=== PATIENT | male | born 1950 | race Caucasian/White ===

== ENCOUNTER 2016-12-19 08:51 | Inpatient (IN) | payer MEDICARE, OTHER ==
[~2016-12-19] VITALS: Ht 190.5 cm; Wt 108.9 kg
--- NOTE | 2016-12-19 09:08 | NUR ---
pt BRIB airport police and social work program coordinator on 354 psych hold for medical clearance for admit. Breatihng even/unlabored, no c/o pain at this time. gait steady. VS stable
[2016-12-19 09:16] LABS: BASOPHILS % (AUTO) 0.3 % (0.0-2.0); EOSINOPHILS # (AUTO) 0.4 /CMM (0.0-0.7); EOSINOPHILS % (AUTO) 4.5 % (0.0-6.0); HEMATOCRIT 42 % (39-51); LYMPHOCYTES # (AUTO) 1.3 /CMM (0.8-4.8); LYMPHOCYTES % (AUTO) 16.8 % (20.0-44.0); MEAN CORPUSCULAR HEMOGLOBIN 29 PG (26.0-33.0); MEAN CORPUSCULAR HGB CONC 34 g/dl (31.0-36.0); MEAN CORPUSCULAR VOLUME 86 fL (80-96); MONOCYTES # (AUTO) 0.8 /CMM (0.1-1.30); MONOCYTES % (AUTO) 10.6 % (2.0-12.0); NEUTROPHILS # (AUTO) 5.4 /CMM (1.8-8.9); NEUTROPHILS % (AUTO) 67.8 % (43.0-81.0); PLATELET COUNT (AUTO) 286 /CMM (150-450); RDW COEFFICIENT OF VARIATION 13.1 (11.5-15.0); RED BLOOD CELL COUNT(AUTO) 4.88 MIL/uL (4.5-6.0)
[2016-12-19 09:23] LABS: CARBON DIOXIDE 27 mmol/L (21-32); CHLORIDE 105 mmol/L (98-107); CREATININE 1.1 mg/dL (0.6-1.3); GLUCOSE 98 mg/dL (74-106); POTASSIUM 4.4 mmol/L (3.5-5.1); SODIUM SERUM 139 mmol/L (136-145); UREA NITROGEN, BLOOD 16 mg/dL (7-18)
[2016-12-19 09:25] LABS: ALCOHOL, BLOOD < 3 mg/dL (0-0)
--- NOTE | 2016-12-19 09:57 | NUR ---
Report to [facility], verbalized understanding pt going to [facility]
--- NOTE | 2016-12-19 10:44 | NUR ---
transported to [facility], stable condition, NAD noted
[2016-12-19 10:57] VITALS: BP 100/65
--- NOTE | 2016-12-19 10:57 | NUR ---
ADMISSION NOTES/ PATIENT ADMIT FROM ER 65 Y/OLD ON DX OF GD HOMELESS MALE ON 5150 HOLD. ACCORDING ON HOLD PATIENT FOUND IN THE [place] AIRPORT, PATIENT IDENTIFIED BY AIRPORT COUNTERINTELLIGENCE/HUMINT SPECIALIST TO BE TALKING SELF,VERBALLY AGGRESSIVE, ODOROUS, AND AGITATED, DISORGANIZED, AND DELUSIONAL SPEECH, AND NO IDENTIFIED PLAN FOR BASIC NEEDS, NO IDENTIFY PLAN FOR SELF CARE. V/S TAKEN BP-100/65, P-76, R-20, O2-97 ROOM AIR, T-98.0, NO RESPIRATORY DISTRESS. ON FACE TO FACE ASSESSMENT PATIENT A/O X2/3, IRRITABLE, LOUD, HARD TO FOLLOW DIRECTION, UNKEMPT, DISORGANIZED THOUGHTS. WITH ASSIST OF FINANCIAL REPRESENTATIVE PATIENT TAKE A SHOWER. SKIN ASSESSMENT DONE, PICTURE TAKEN. PATIENT AMBULATORY, CONTINENT. FALL AND SAFETY PRECAUTION ATTENDED , AND MAINTAINED ALL THE TIME. PATIENT REFUSED SIGN PAPERWORK. PATIENTS RIGHT HAND BOOKS GIVEN, AND EXPLAINED TO. PATIENT BELONGING AND CONTRABAND CHECKED. DR CHANCE, AND DR BECKFORD AWARE OF NEW PATIENT, AND NEW MEDICATION, CONTINUED MONITORING.
[2016-12-19] MEDS ORDERED: ZOLPIDEM TARTRATE 5 MG TABLET PO PRN (12:00)
[2016-12-19] MEDS ORDERED: ACETAMINOPHEN 325 MG TABLET PO PRN (12:00)
[2016-12-19] MEDS ORDERED: MAG HYDROX/AL HYDROX/SIMETH 30 ML UDC PO PRN (12:00)
[2016-12-19] MEDS ORDERED: MAGNESIUM HYDROXIDE 30 ML UDC PO PRN (12:00)
[2016-12-19] MEDS ORDERED: ALBUTEROL FS 2.5 MG/3 ML VIAL.NEB NEB PRN (13:30)
[2016-12-19 16:00] VITALS: BP 143/68
[2016-12-19] MEDS: OLANZAPINE 5 MG/TAB.RAPDIS PO SCH (17:41)
--- NOTE | 2016-12-19 20:00 | NUR ---
GPS RN NOTES PT REFUSED VS. EXPLAINED TO PT IMPORTANCE OF VS IN HIS POC BUT PT STILL REFUSED.
[2016-12-19] MEDS: DIVALPROEX SODIUM 250 MG TABLET.DR PO SCH (21:20)
[2016-12-20 06:54] LABS: ALBUMIN 3.3 g/dL (3.4-5.0); BILIRUBIN,TOTAL 0.4 mg/dL (0.2-1.0); CREATININE 1.1 mg/dL (0.6-1.3); POTASSIUM 4.5 mmol/L (3.5-5.1)
[2016-12-20] MEDS: OLANZAPINE 5 MG/TAB.RAPDIS PO SCH ×2 (08:06→16:09)
[2016-12-20] MEDS: DIVALPROEX SODIUM 250 MG TABLET.DR PO SCH ×2 (08:06→20:27)
[2016-12-20 08:44] VITALS: BP 125/81
--- NOTE | 2016-12-20 10:57 | NUR ---
Initial Discharge Plan: Per patient, he resides at [address] [place], [place] [id number]. However, per hold, pt. is homeless. filter worker spoke to patient's friend Alize Mejia ([phone]) however, she stated that she does not remember meeting a Sreedhar. filter worker will help form a safe and proper discharge.
[2016-12-20] MEDS: LORAZEPAM 0.5 MG TABLET PO PRN (12:34)
--- NOTE | 2016-12-20 12:34 | NUR ---
ADMINISTERED ATIVAN 1 MG PO PRN FOR ANXIETY, IRRITABLE, AGGRESSIVE BEHAVIOR, ALSO ADMINISTERED TYLENOL 650 MG PO PRN FOR RIGHT LEG PAIN 12/10, PER PATIENT REQUEST, CONTINUED MONITORING.
[2016-12-20 16:18] VITALS: BP 93/62
[2016-12-20] MEDS ORDERED: IBUPROFEN 600 MG TABLET PO PRN (18:30)
--- NOTE | 2016-12-20 18:30 | NUR ---
administered motrin 600 mg po prn for right hill pain 01/31, per patient request. continued monitoring.
[2016-12-20 20:00] VITALS: BP 124/60
--- NOTE | 2016-12-20 20:00 | NUR ---
RN NOTES RECEIVED PT. SLEEPING BUT AROUSABLE, NOT IN DISTRESS, QUIET, WILL CONTINUE TO MONITOR
[2016-12-21 08:00] VITALS: BP 112/59
[2016-12-21] MEDS: DIVALPROEX SODIUM 250 MG TABLET.DR PO SCH ×2 (09:09→20:33)
[2016-12-21] MEDS: OLANZAPINE 5 MG/TAB.RAPDIS PO SCH ×2 (09:09→17:05)
--- NOTE | 2016-12-21 12:13 | NUR ---
WOUND CARE CONSULT: PT NOT SEEN FOR SKIN ASSESSMENT DUE TO PT EATING AT THIS TIME. PT AMBULATORY PER NURSING STAFF. WILL SEE PRN.
[2016-12-21 16:00] VITALS: BP 114/56
[2016-12-21 20:00] VITALS: BP 116/66
[2016-12-21] MEDS: LORAZEPAM 0.5 MG TABLET PO PRN (21:01)
[2016-12-22 08:00] VITALS: BP 114/69
[2016-12-22] MEDS: DIVALPROEX SODIUM 250 MG TABLET.DR PO SCH ×2 (08:24→21:14)
[2016-12-22] MEDS: OLANZAPINE 5 MG/TAB.RAPDIS PO SCH ×2 (08:24→16:34)
[2016-12-22 15:59] VITALS: BP 120/70
--- NOTE | 2016-12-22 19:30 | NUR ---
GPS RN NOTE, RECEIVED PATIENT AWAKE AND IN BED, NO S/S OR COMPLAINTS OF PAIN AT THIS TIME. PATIENT IS DISPLAYING NO S/S OF APPARENT DISTRESS AT THIS TIME. PATIENT BREATHING IS UNLABORED WITH EQUAL RISE AND FALL OF THE CHEST. PATIENT IS ALERT AND ORIENTED X 3 ON ROOM AIR WITH A SPO2 95%. PATIENT COMPLAINT WITH MEDICATION, ANXIOUS, COOPERATIVE, CONFUSED AT TIMES, ISOLATIVE, AND NEEDS REORIENTATION. PATIENT DENIES SUICIDE AND HOMICIDAL IDEATIONS AT THIS TIME. PATIENT ASSISTED WITH TURNING AND REPOSITIONING Q2HR AND PRN FOR COMFORT AND CIRCULATION. PATIENT HAS NO NEEDS AT THIS TIME. PATIENT EDUCATED ON THE USE OF THE CALL BECKER. PATIENT BED SIDE RAILS UP X2 FOR SAFETY, BED IS LOCKED AND LOW WILL CONTINUE TO MONITOR AND MAINTAIN SAFETY.
[2016-12-22 20:00] VITALS: BP 102/61
[2016-12-23 08:20] VITALS: BP 135/88
[2016-12-23] MEDS: DIVALPROEX SODIUM 250 MG TABLET.DR PO SCH ×2 (08:37→21:12)
[2016-12-23] MEDS: OLANZAPINE 5 MG/TAB.RAPDIS PO SCH ×2 (08:38→17:03)
[2016-12-23 15:57] VITALS: BP 128/99
[2016-12-23 19:36] VITALS: BP 106/73
[2016-12-24] MEDS: OLANZAPINE 5 MG/TAB.RAPDIS PO SCH ×2 (07:50→17:13)
[2016-12-24] MEDS: DIVALPROEX SODIUM 250 MG TABLET.DR PO SCH ×3 (07:51→17:13)
[2016-12-24 08:00] VITALS: BP 135/75
[2016-12-24 16:00] VITALS: BP 128/80
--- NOTE | 2016-12-24 16:11 | NUR ---
post tensioning ironworker helper faxed initial review packet to [facility] (phone: [phone]/ fax: [phone]) [place] [address]. post tensioning ironworker helper spoke to Colt from the facility who stated that patient has been accepted. post tensioning ironworker helper will follow-up.
[2016-12-24 19:42] VITALS: BP 123/65
[2016-12-25] MEDS: DIVALPROEX SODIUM 250 MG TABLET.DR PO SCH ×3 (08:25→17:40)
[2016-12-25] MEDS: OLANZAPINE 5 MG/TAB.RAPDIS PO SCH ×2 (08:26→17:41)
[2016-12-25 10:02] VITALS: BP 129/68
[2016-12-25 16:00] VITALS: BP 117/69
[2016-12-25 20:57] VITALS: BP 131/84
[2016-12-26 08:00] VITALS: BP 105/68
[2016-12-26] MEDS: DIVALPROEX SODIUM 250 MG TABLET.DR PO SCH ×3 (08:39→17:13)
[2016-12-26] MEDS: OLANZAPINE 5 MG/TAB.RAPDIS PO SCH ×2 (08:39→17:13)
[2016-12-26 16:00] VITALS: BP 148/95
[2016-12-26 20:11] VITALS: BP 115/67
[2016-12-27] MEDS: DIVALPROEX SODIUM 250 MG TABLET.DR PO SCH ×2 (08:15→13:49)
[2016-12-27] MEDS: OLANZAPINE 5 MG/TAB.RAPDIS PO SCH (08:16)
[2016-12-27 08:58] VITALS: BP 143/92
--- NOTE | 2016-12-27 10:46 | NUR ---
DR. CHANCE GAVE AN ORDER TO D/C HOLD AND D/C TO [facility]. PT. WITHOUT DISTRESS, DENIES SUICIDAL AND HOMICIDAL. TO FOLLOW UP WITH PSYCH AND MEDICAL DOCTORS.
--- NOTE | 2016-12-27 15:02 | NUR ---
Discharge note: Patient will be discharged to [facility] (phone: [phone]/ fax: [phone]) [facility] [address] [address] [employer]. Patient was agreeable with the discharge plan. Patient's mood and affect are appropriate. Patient denied suicidal and homicidal ideations. Facilitated info to IDT team who are in agreement with discharge arrangement. The multidisciplinary exitcare form was done, printed, signed, and given to the patient.
--- NOTE | 2016-12-27 16:12 | NUR ---
GPS/RN PATIENT CLEARED FOR DISCHARGE HOME BY DR CHANCE AND COURT WORKER SRIDEVI. ALL D/C FORMS SIGNED, BELONGINGS RETURNED AND SIGNED FOR. MEDICATIONS RECONCILED BY BOTH DR'S, ALL MEDICATIONS EXPLAINED TO PATIENT, VERBALIZED UNDERSTANDING. PATIENT DENIES SI/HI/AH AT TIME OF DISCHARGE, PSYCHIATRIC TREATMENT PLANS MET,REPORT CALLED TO AGUILA [facility] AT FACILITY, LEFT UNIT VIA GURNEY, CALM, COOPERATIVE, NO AGITATION,STABLE CONDITION, NO DISTRESS WITH EMT AT SIDE.
== END 2016-12-27 16:05 | DRG 885 ==
LOC: EDUNIT# 08:51 → ER 08:52 → GPS 09:55
PROVIDERS: ADMIT Internal Medicine; ATTEND Psychiatry & Neurology Psychiatry
DX: F31.2 Bipolar disorder, current episode manic severe with psychotic features (principal); F23 Brief psychotic disorder; M19.90 Unspecified osteoarthritis, unspecified site; J40 Bronchitis, not specified as acute or chronic; F17.210 Nicotine dependence, cigarettes, uncomplicated; K21.9 Gastro-esophageal reflux disease without esophagitis; Z91.14 Patient's other noncompliance with medication regimen
CPT/HCPCS: 36415; 73650-TC; 80048-TC; 80053-TC; 80164-TC; 85025-TC; 87081-TC; A4606; G0480; Z7610

== ENCOUNTER 2020-05-31 18:46 | Inpatient (IN) | payer MEDICARE, OTHER ==
[~2020-05-31] VITALS: Ht 193 cm; Wt 101.2 kg
[2020-05-31] MEDS ORDERED: ZOLPIDEM TARTRATE 5 MG TABLET PO PRN (23:00)
[2020-05-31] MEDS ORDERED: MAGNESIUM HYDROXIDE 30 ML UDC PO PRN (23:00)
[2020-05-31] MEDS ORDERED: MAG HYDROX/AL HYDROX/SIMETH 30 ML UDC PO PRN (23:00)
[2020-05-31] MEDS ORDERED: LORAZEPAM 1 MG TABLET PO PRN (23:00)
[2020-05-31] MEDS ORDERED: ACETAMINOPHEN 325 MG TABLET PO PRN (23:00)
[2020-05-31] MEDS ORDERED: BLOOD SUGAR DIAGNOSTIC 1 EACH STRIP IN ONE (23:00)
--- NOTE | 2020-06-01 00:10 | NUR ---
GPS RN NOTE: ADMITTING BLOOD GLUCOSE WAS 221. INFORMED ANGELLA HOLLOWAY AND ORDERED SLIDING SCALE AND UA STAT.
--- NOTE | 2020-06-01 00:10 | NUR ---
GPS RN NOTE: [employer] FORCES COMMUNICATIONS SERGEANT ANGELLA HOLLOWAY AWARE OF PRE HTN AND PRE DIABETIC PER REPORT. STATES THAT SHE WILL REVIEW
[2020-06-01] MEDS ORDERED: INSULIN REGULAR, HUMAN 100 UNIT/ML 3 ML VIAL SQ PRN (00:30)
[2020-06-01] MEDS ORDERED: DEXTROSE 50%-WATER 50 ML DISP.SYRIN IV PRN (00:30)
--- NOTE | 2020-06-01 00:50 | NUR ---
GPS RN NOTE: PT. REFUSED INSULIN SLIDING SCALE COVERAGE. WILL CONTINUE TO MONITOR
[2020-06-01 01:00] VITALS: BP 108/48
[2020-06-01] MEDS ORDERED: OLAN2.5T3 PO (01:18)
--- NOTE | 2020-06-01 01:22 | NUR ---
GPS REBAR FABRICATOR NOTE: PT ARRIVED ON THE UNIT 05/31/20 @ 2230, PT CAME FROM [facility], PT IS A 69 Y/O MALE PLACED ON A 5150 DUE TO DTS, PER HOLD PT IS REPORTING SUICIDAL IDEATIONS AND PLANS TO OVERDOSE AND DRINK ALCOHOL. PT HAS HX DEPRESSION. UPON ASSESSMENT PT IS A/O X 3, PT HAS FLAT AFFECT, DISHEVELED, AMBULATORY. ABLE TO ANSWER QUESTIONS AND SIGNED PAPERWORK. PT DENIES SI/HI AT THIS TIME, DENIES AVH. PT DENIES PAIN, NO DISTRESS WAS NOTED. PT DENIES BOTH FLU AND PNA VACCINE. PT ADVISED OF HOLD, PT RIGHTS HANDBOOK GIVEN TO THE PT, PT MADE AWARE OF THE UNIT. PT WILL BE UNDER THE CARE OF MEDICAL DR. CHO AND PSYCH CARE OF DR. CHANCE. ALL NEEDS MET AT THIS TIME, WILL CONTINUE TO MONITOR Q15MIN FOR SAFETY AND BEHAVIOR.
[2020-06-01 02:33] LABS: BILIRUBIN,URINE NEGATIVE (NEGATIVE); BLOOD, URINE NEGATIVE Ery/uL (NEGATIVE); COLOR,URINE YELLOW (YELLOW); LEUKOCYTE ESTERASE ,URINE NEGATIVE (NEGATIVE); NITRITE, URINE NEGATIVE (NEGATIVE); PROTEIN,URINE NEGATIVE (NEGATIVE); UGLUCOSE NEGATIVE (NEGATIVE); UROBILINOGEN,URINE 0.2 EU/dL (0.2)
[2020-06-01 08:00] VITALS: BP 139/96
[2020-06-01] MEDS: BLOOD SUGAR DIAGNOSTIC 1 EACH STRIP IN SCH ×4 (08:14→20:51)
--- NOTE | 2020-06-01 08:49 | NUR ---
GPS/RN-NOTES NOTED PATIENT SCREAMING AND YELLING AT STAFF ,USING FOUL LANGUAGES, REDIRECTED AND ATIVAN 1MG P.O GIVEN PRN ORDER. WILL CONT. MONITORING FOR SAFETY AND BEHAVIOR.
--- NOTE | 2020-06-01 09:42 | NUR ---
SW Family Contact: Pt does not have any family contacts at this moment.
--- NOTE | 2020-06-01 09:42 | NUR ---
SW Initial Discharge Plan: Patient is currently homeless and will require a nursing facility. Pt would want this SW to find pt a nursing facility. Pt does not have any family contact at this moment. SW will work with the pt and the MD to coordinate proper discharge plan with pt.
--- NOTE | 2020-06-01 09:58 | NUR ---
SW Substance Abuse Intervention: Patient was provided with a brief substance abuse intervention and referred to [facility] ([phone]), [facility] ([phone]), and [facility] ([phone]).
--- NOTE | 2020-06-01 10:14 | NUR ---
WOUND CARE CONSULT: PT REFUSED SKIN ASSESSMENT. PT IS AMBULATORY AND CONTINENT PER NURSING STAFF. WILL SEE PRN.
[2020-06-01 10:48] LABS: ALBUMIN 3.4 g/dL (3.4-5.0); BILIRUBIN,TOTAL 0.2 mg/dL (0.2-1.0); CREATININE 1.1 mg/dL (0.6-1.3); POTASSIUM 4.3 mmol/L (3.5-5.1); TOTAL PROTEIN, SERUM 6.9 g/dL (6.4-8.2)
[2020-06-01 10:58] LABS: THYROID STIMULATING HORMONE 0.848 uIU/mL (0.358-3.74)
[2020-06-01] MEDS: OLANZAPINE 5 MG TABLET PO SCH ×2 (11:11→16:47)
[2020-06-01 16:00] VITALS: BP 146/73
[2020-06-01 19:57] VITALS: BP 106/54
[2020-06-01] MEDS: DIVALPROEX SODIUM 250 MG TABLET.DR PO SCH (20:51)
[2020-06-02] MEDS: BLOOD SUGAR DIAGNOSTIC 1 EACH STRIP IN SCH ×4 (07:24→21:39)
[2020-06-02 08:00] VITALS: BP 142/76
[2020-06-02] MEDS: OLANZAPINE 5 MG TABLET PO SCH ×2 (08:19→16:09)
[2020-06-02] MEDS: DIVALPROEX SODIUM 250 MG TABLET.DR PO SCH ×2 (08:19→21:26)
--- NOTE | 2020-06-02 11:02 | NUR ---
SNF Referral: This SW sent referrals to Leobardo marley for [facility] ([phone]) and to Roxanne from [facility] ([phone]) to help with placement. This SW sent H & P psychiatric notes, medication list, and laboratory list.
--- NOTE | 2020-06-02 12:01 | NUR ---
RACHEL Discharge Planning: This selling underwriter spoke with pt and stated if he would want to return to [facility], however, pt stated he would want a different group home.
--- NOTE | 2020-06-02 12:06 | NUR ---
SNF Contact: SW received a call from Roxanne from [facility] ([phone]) who stated pt is accepted and will accept pt when they open up and are currently closed due to covid.
--- NOTE | 2020-06-02 12:23 | NUR ---
SNF Contact: CJ Admin from [facility] ([phone]) stated pt is accepted.
--- NOTE | 2020-06-02 12:35 | NUR ---
InHiro: Pt requested for this show card writer to contact [employer] ([phone]) and whip operator was unable to locate pt's information as he is not in the system. Pt requested for a lost credit card. However, this appears to be paranoia.
--- NOTE | 2020-06-02 12:54 | NUR ---
SW Family Contact: This insurance underwriter received a phone call from pt's sister Petra ([phone]) and stated pt was at [facility] and had left AMA. However, sister stated she would want pt to return back, however, this insurance underwriter advised that pt wants to go to a different fdc.
[2020-06-02 16:00] VITALS: BP 129/72
--- NOTE | 2020-06-02 19:21 | NUR ---
GPS RN NOTE, RECEIVED PATIENT AWAKE AND IN BED, NO S/S OR COMPLAINTS OF PAIN AT THIS TIME. PATIENT IS DISPLAYING NO S/S OF APPARENT DISTRESS AT THIS TIME. PATIENT BREATHING IS UNLABORED WITH EQUAL RISE AND FALL OF THE CHEST. PATIENT IS ALERT AND ORIENTED X 3 ON ROOM AIR WITH A SPO2 96%. PATIENT IS COMPLIANT WITH MEDICATIONS, HYPERVERBAL, ANXIOUS AT TIMES, EASILY IRRITABLE, AND COOPERATIVE. PATIENT DENIES SUICIDAL AND HOMICIDAL IDEATIONS AT THIS TIME. PATIENT ASSISTED WITH TURNING AND REPOSITIONING Q2HR AND PRN FOR COMFORT AND CIRCULATION. PATIENT HAS NO NEEDS AT THIS TIME. PATIENT EDUCATED ON THE USE OF THE CALL BECKER. PATIENT BED SIDE RAILS UP X 2 FOR SAFETY. PATIENT BED IS LOCKED, LOW, WITH BED ALARM ON. WILL CONTINUE TO MONITOR THIS PATIENT Q15 MINUTES WITH THE HELP OF STAFF TO MAINTAIN SAFETY.
[2020-06-02 19:56] VITALS: BP 106/51
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
[2020-06-03] MEDS: BLOOD SUGAR DIAGNOSTIC 1 EACH STRIP IN SCH ×4 (07:36→21:38)
[2020-06-03 07:42] VITALS: BP 139/74
[2020-06-03] MEDS: OLANZAPINE 5 MG TABLET PO SCH ×2 (08:24→16:43)
[2020-06-03] MEDS: DIVALPROEX SODIUM 250 MG TABLET.DR PO SCH ×2 (08:24→21:14)
--- NOTE | 2020-06-03 09:00 | NUR ---
RN NOTE- PT ALERT INTERACTIVE PO INTAKE GOOD MED COMPLIANT POOR EYE CONTACT A BIT PARANOID AND GUARDED, DENIES SI [facility]
[2020-06-03 16:13] VITALS: BP_SYST 118; BP_SYST 140; BP_DIAS 68; BP_DIAS 77
--- NOTE | 2020-06-03 19:30 | NUR ---
GPS RN NOTE, RECEIVED PATIENT AWAKE AND IN BED, NO S/S OR COMPLAINTS OF PAIN AT THIS TIME. PATIENT IS DISPLAYING NO S/S OF APPARENT DISTRESS AT THIS TIME. PATIENT BREATHING IS UNLABORED WITH EQUAL RISE AND FALL OF THE CHEST. PATIENT IS ALERT AND ORIENTED X 3 ON ROOM AIR WITH A SPO2 95%. PATIENT IS COMPLIANT WITH MEDICATIONS, HYPERVERBAL, ANXIOUS AT TIMES, EASILY IRRITABLE, AND COOPERATIVE. PATIENT DENIES SUICIDAL AND HOMICIDAL IDEATIONS AT THIS TIME. PATIENT ASSISTED WITH TURNING AND REPOSITIONING Q2HR AND PRN FOR COMFORT AND CIRCULATION. PATIENT HAS NO NEEDS AT THIS TIME. PATIENT EDUCATED ON THE USE OF THE CALL BECKER. PATIENT BED SIDE RAILS UP X 2 FOR SAFETY. PATIENT BED IS LOCKED, LOW, WITH BED ALARM ON. WILL CONTINUE TO MONITOR THIS PATIENT Q15 MINUTES WITH THE HELP OF STAFF TO MAINTAIN SAFETY.
[2020-06-03 19:37] VITALS: BP 107/52
--- NOTE | 2020-06-03 21:38 | NUR ---
GPS RN NOTE, PATIENT REFUSED TO HAVE A ACCU CHECK PERFORMED. OFFERED ACCU CHECK THREE TIMES AND STILL PATIENT REFUSED WHILE STATING, " NO I NOT INTERESTED IN HAVING MY FINGER STUCK ". EDUCATED THIS PATIENT ON THE RISKS AND BENEFITS OF HAVING AN ACCU CHECK PERFORMED. WILL CONTINUE TO MONITOR THIS PATIENT WITH THE HELP OF STAFF.
[2020-06-04] MEDS: BLOOD SUGAR DIAGNOSTIC 1 EACH STRIP IN SCH ×4 (07:30→21:49)
[2020-06-04 07:53] VITALS: BP 136/69
[2020-06-04] MEDS: OLANZAPINE 5 MG TABLET PO SCH ×2 (08:23→16:02)
[2020-06-04] MEDS: DIVALPROEX SODIUM 250 MG TABLET.DR PO SCH ×2 (08:23→21:48)
[2020-06-04 16:00] VITALS: BP 106/58
[2020-06-04 19:56] VITALS: BP 102/52
[2020-06-05] MEDS: BLOOD SUGAR DIAGNOSTIC 1 EACH STRIP IN SCH ×4 (07:30→22:00)
[2020-06-05 08:00] VITALS: BP 110/69
[2020-06-05 08:17] LABS: BASOPHILS % (AUTO) 0.8 % (0.0-2.0); EOSINOPHILS % (AUTO) 2.8 % (0.0-6.0); HEMATOCRIT 43 % (39-51); HEMOGLOBIN 14.1 g/dL (13.5-17.5); LYMPHOCYTES # (AUTO) 1.6 /CMM (0.8-4.8); LYMPHOCYTES % (AUTO) 25.7 % (20.0-44.0); MEAN CORPUSCULAR HGB CONC 33 g/dl (31.0-36.0); MEAN CORPUSCULAR VOLUME 88 fL (80-96); MONOCYTES # (AUTO) 0.7 /CMM (0.1-1.30); NEUTROPHILS # (AUTO) 3.7 /CMM (1.8-8.9); NEUTROPHILS % (AUTO) 58.7 % (43.0-81.0); PLATELET COUNT (AUTO) 259 /CMM (150-450); RED BLOOD CELL COUNT(AUTO) 4.85 MIL/uL (4.5-6.0); WHITE BLOOD COUNT (AUTO) 6.2 K/uL (4.3-11.0)
[2020-06-05] MEDS: OLANZAPINE 5 MG TABLET PO SCH ×2 (09:15→17:34)
[2020-06-05] MEDS: DIVALPROEX SODIUM 250 MG TABLET.DR PO SCH ×2 (09:15→21:16)
[2020-06-05 10:31] LABS: ALBUMIN 3.2 g/dL (3.4-5.0); BILIRUBIN,TOTAL 0.2 mg/dL (0.2-1.0); CALCIUM, SERUM 9.1 mg/dL (8.5-10.1); POTASSIUM 4.6 mmol/L (3.5-5.1); TOTAL PROTEIN, SERUM 6.7 g/dL (6.4-8.2)
[2020-06-05 16:00] VITALS: BP 110/64
[2020-06-05 20:38] VITALS: BP 96/43
[2020-06-06] MEDS: BLOOD SUGAR DIAGNOSTIC 1 EACH STRIP IN SCH ×4 (07:30→21:18)
[2020-06-06] MEDS: DIVALPROEX SODIUM 250 MG TABLET.DR PO SCH ×3 (08:47→17:42)
[2020-06-06] MEDS: OLANZAPINE 5 MG TABLET PO SCH ×2 (08:47→17:42)
[2020-06-06 16:00] VITALS: BP 145/73
[2020-06-06 16:41] VITALS: BP 140/84
[2020-06-06 19:55] VITALS: BP 113/55
--- NOTE | 2020-06-06 21:18 | NUR ---
GPS-RN NOTE: PATIENT REFUSED BLOOD SUGAR TO BE CHECKED SCHEDULED. EDUCATED PATIENT REGARDING THE IMPORTANCE OF TREATMENT COMPLIANCE. PATIENT CONTINUED TO REFUSE. WILL CONTINUE TO MONITOR.
[2020-06-07] MEDS: BLOOD SUGAR DIAGNOSTIC 1 EACH STRIP IN SCH ×4 (07:30→21:07)
[2020-06-07 08:00] VITALS: BP 120/76
[2020-06-07] MEDS: OLANZAPINE 5 MG TABLET PO SCH ×2 (08:33→17:04)
[2020-06-07] MEDS: DIVALPROEX SODIUM 250 MG TABLET.DR PO SCH ×3 (08:33→17:05)
--- NOTE | 2020-06-07 09:42 | NUR ---
PC Hearing: Pts [phone] hold was upheld for grave disability.
--- NOTE | 2020-06-07 11:22 | NUR ---
Individual Intervention: SW met with the pt individually to discuss his discharge plan. Pt stated that he found is card and that he is aware that he was accepted to nursing homes. Pt states that he wants to be discharged to [facility] located at [address] [place] [address]. Pt states that he has been there before and he can be in a room for a month at a time. Pt states that he wants to be on his own and have the ability to come and go as he pleases. SW stated that he has the right to make his own decisions regardless of the recommendation from the hospital being a SNF. SW informed him that she will plan his discharge accordingly.
[2020-06-07 16:00] VITALS: BP 112/52
[2020-06-07 19:49] VITALS: BP 136/72
--- NOTE | 2020-06-07 19:59 | NUR ---
GPS RN NOTE RECEIVED PT IN ROOM RESTING, PT IS A/O X2-3, FLAT, BLUNT AFFECT, ISOLATIVE, DENIES PAIN AT THIS MOMENT, PT STATES HE WILL BE D/C SATURDAY AND IS READY TO GO HOME, DENIES SI/HI, DENIES AVH AT THIS TIME, VSS, BED IN LOCKED AND LOWEST POSITION, BED ALARM ON, WHEEL CHAIR ACCESSIBLE TO PT, RAISED THE PTS HEAD OF THE BED UP TO PROMOTE OPTIMAL BREATHING PT DENIES SOB, NO DISTRESS NOTED, WILL CONTINUE TO MONITOR Q15MIN FOR SAFETY AND BEHAVIOR.
--- NOTE | 2020-06-07 21:08 | NUR ---
GPS RN NOTE PT REFUSED SCHEDULED BLOOD SUGAR, REMINDED PT OF THE IMPORTANCE OF HAVING BS CHECKED, PT STILL REFUSED PT STATED "IM GOING TO REFUSE IT, I DONT LIKE BEING POKED, MAYBE TOMORROW"
[2020-06-08] MEDS: BLOOD SUGAR DIAGNOSTIC 1 EACH STRIP IN SCH ×4 (07:14→21:25)
[2020-06-08 08:00] VITALS: BP 127/52
[2020-06-08] MEDS: OLANZAPINE 5 MG TABLET PO SCH ×2 (08:26→16:35)
[2020-06-08] MEDS: DIVALPROEX SODIUM 250 MG TABLET.DR PO SCH ×3 (08:26→16:35)
--- NOTE | 2020-06-08 09:00 | NUR ---
RN NOTE- ALERT ORIENTED TO PERSON PLACE TIME, MILDLY CONFUSED, DENIES ALL.PO INTAKE GOOD MED COMPLIANT
[2020-06-08 16:00] VITALS: BP 113/67
[2020-06-08 19:48] VITALS: BP 116/42
--- NOTE | 2020-06-08 21:58 | NUR ---
GPS-RN NOTE: PATIENT REFUSED BLOOD SUGAR TO BE CHECKED SCHEDULED. EDUCATED PATIENT REGARDING THE IMPORTANCE OF TREATMENT COMPLIANCE. PATIENT CONTINUED TO REFUSE. WILL CONTINUE TO MONITOR.
[2020-06-09] MEDS: BLOOD SUGAR DIAGNOSTIC 1 EACH STRIP IN SCH ×4 (07:30→21:17)
[2020-06-09 08:00] VITALS: BP 104/55
[2020-06-09] MEDS: OLANZAPINE 5 MG TABLET PO SCH ×2 (08:09→16:19)
[2020-06-09] MEDS: DIVALPROEX SODIUM 250 MG TABLET.DR PO SCH ×3 (08:09→16:19)
[2020-06-09 16:00] VITALS: BP 115/63
--- NOTE | 2020-06-09 16:33 | NUR ---
RN-CO: PT REFUSED ACCU CHECK.
[2020-06-09 19:47] VITALS: BP 102/55
[2020-06-10 08:00] VITALS: BP 116/70
[2020-06-10] MEDS: BLOOD SUGAR DIAGNOSTIC 1 EACH STRIP IN SCH ×2 (08:29→11:54)
[2020-06-10] MEDS: OLANZAPINE 5 MG TABLET PO SCH (09:22)
[2020-06-10] MEDS: DIVALPROEX SODIUM 250 MG TABLET.DR PO SCH ×2 (09:22→12:35)
--- NOTE | 2020-06-10 09:50 | NUR ---
Discharge Note: Pt will be discharged to [facility] located at [address] [place] [address]; . Pt does not have any family to contact. Pt will be discharged at 2pm and pt will be transported via bus and will be provided with a TAP card. Upon discharge, the pt appears to be in a euthymic mood and presented with a distressed affect. Pt denies both suicidal and homicidal ideation as well as auditory and visual hallucinations. Pt was provided with homeless resources such as shelters, food rodas, showers, hot meals, health clinics, mental health clinics and substance abuse referrals. Pt was referred to [facility] located at [address] [place] [address]; ; fax was sent to: , for psychiatric services. Pt was also referred to [facility] located at [address], [place]; ; for medical services. Pt signed the homeless waiver and the multidisciplinary exit care form was done, printed, signed, and given to the patient.
--- NOTE | 2020-06-10 13:11 | NUR ---
LONG TERM CARE SOCIAL WORKER NOTES PATIENT DISCHARGE AT THIS TIME GOING MOTEL. PATIENT A/O X3, STABLE, AMBULATORY SELF CARE. PATIENT DENIED SI/HI/AVH AT THIS TIME, MED RECONCILIATION AND DISCHARGE ORDERS REVIEWED AND EXPLAINED TO PATIENT . PATIENT VERBALIZED UNDERSTANDING. PRESCRIPTIONS HANDED TO THE PATIENT WITH PAPERWORK. PATIENT WILL FOLLOWED PRIMARY MD. AND PSYCHIATRIST. ESCORTED PATIENT TO THE LOBBY FOR SAFETY, BELONGING RETURNED BACK TO THE PATIENT. PATIENT SIGN PAPERWORK. PATIENT WILL TAKE A BUS.
== END 2020-06-10 13:10 | disposition home or self-care (01) | DRG 885 ==
LOC: GPS 22:11
PROVIDERS: ADMIT Psychiatry & Neurology Psychiatry; ATTEND Family Medicine
DX: F31.2 Bipolar disorder, current episode manic severe with psychotic features (principal); R45.851 Suicidal ideations; F23 Brief psychotic disorder; F41.9 Anxiety disorder, unspecified; E11.9 Type 2 diabetes mellitus without complications; F17.210 Nicotine dependence, cigarettes, uncomplicated; I10 Essential (primary) hypertension; Z59.0 Homelessness; F10.10 Alcohol abuse, uncomplicated; M62.81 Muscle weakness (generalized); Z79.4 Long term (current) use of insulin
CPT/HCPCS: 36415; 80053-TC; 80061-TC; 80164-TC; 82962-TC; 84443-TC; 85025-TC; 87081-TC; J1815

== ENCOUNTER 2020-06-26 05:18 | Inpatient (IN) | payer MEDICARE, OTHER ==
[~2020-06-26] VITALS: Ht 193 cm; Wt 113.4 kg
[~2020-06-26 05:18] MED LIST: OLAN2.5T3 PO
--- NOTE | 2020-06-26 05:56 | NUR ---
BIBSELF C/O SUICIDAL IDEATION WITH PLAN TO OVERDOSE. DENIES HI/HALLUCINATIONS AT THIS TIME. PT AAOX4. CALM AND COOPERATIVE. VITAL SIGNS STABLE. RESPIRATIONS EVEN AND UNLABORED. AMBULATORY WITH STEADY LIMP IN GAIT. NO ACUTE DISTRESS NOTED AT THIS TIME. SUICIDAL PRECAUTIONS INITIATED. PT PLACED IN GOWN, BELONGINGS COLLECTED AND PLACED IN PATIENT LOCKER. SITTER AT BEDSIDE, WILL CONTINUE TO MONITOR
--- NOTE | 2020-06-26 06:01 | NUR ---
URINE SAMPLE COLLECTEED AND SENT TO LAB.
--- NOTE | 2020-06-26 06:07 | NUR ---
COVID SWAB COLLECTED AND SENT TO LAB.
[2020-06-26 06:58] LABS: BASOPHILS % (AUTO) 0.5 % (0.0-2.0); HEMATOCRIT 39 % (39-51); LYMPHOCYTES # (AUTO) 1.9 /CMM (0.8-4.8); LYMPHOCYTES % (AUTO) 25.4 % (20.0-44.0); MEAN CORPUSCULAR HGB CONC 33 g/dl (31.0-36.0); MEAN CORPUSCULAR VOLUME 88 fL (80-96); MONOCYTES # (AUTO) 0.8 /CMM (0.1-1.30); MONOCYTES % (AUTO) 10.9 % (2.0-12.0); NEUTROPHILS # (AUTO) 4.5 /CMM (1.8-8.9); NEUTROPHILS % (AUTO) 60.2 % (43.0-81.0); PLATELET COUNT (AUTO) 244 /CMM (150-450); RED BLOOD CELL COUNT(AUTO) 4.46 MIL/uL (4.5-6.0); WHITE BLOOD COUNT (AUTO) 7.5 K/uL (4.3-11.0)
[2020-06-26 07:09] LABS: CALCIUM, SERUM 8.9 mg/dL (8.5-10.1); CARBON DIOXIDE 25 mmol/L (21-32); CHLORIDE 104 mmol/L (98-107); CREATININE 1.1 mg/dL (0.6-1.3); GLUCOSE 100 mg/dL (74-106); SODIUM SERUM 137 mmol/L (136-145); UREA NITROGEN, BLOOD 20 mg/dL (7-18)
[2020-06-26 07:14] LABS: ALANINE AMINOTRANSFERASE 23 U/L (12-78); ALBUMIN 3.7 g/dL (3.4-5.0); ALCOHOL, BLOOD < 3 mg/dL (0-0); ALKALINE PHOSPHATASE 57 U/L (46-116); ASPARTATE AMINOTRANSFERASE 19 U/L (15-37); BILIRUBIN,DIRECT 0.1 mg/dL (0.0-0.2); BILIRUBIN,TOTAL 0.2 mg/dL (0.2-1.0); TOTAL PROTEIN, SERUM 7.2 g/dL (6.4-8.2)
[2020-06-26 07:17] LABS: ACETAMINOPHEN < 2 ug/ml (10-30)
--- NOTE | 2020-06-26 08:29 | NUR ---
PT MARLYS SOLARES FELL BACK TO SLEEP
--- NOTE | 2020-06-26 11:25 | NUR ---
PT GIVEN TYEENOL 650 MG PO CALLED RT FOR BREATHING TX
--- NOTE | 2020-06-26 15:01 | NUR ---
PAGED CHASE FOR CRISIS EVAL.
--- NOTE | 2020-06-26 17:01 | NUR ---
REPORT GIVEN TO ALBINA FOR ANDREA.
[2020-06-26 19:00] VITALS: BP 126/58
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
[2020-06-26] MEDS ORDERED: MAG HYDROX/AL HYDROX/SIMETH 30 ML UDC PO PRN (20:00)
[2020-06-26] MEDS ORDERED: ZOLPIDEM TARTRATE 10 MG TABLET PO PRN (20:00)
[2020-06-26] MEDS ORDERED: MAGNESIUM HYDROXIDE 30 ML UDC PO PRN (20:00)
[2020-06-26] MEDS ORDERED: ACETAMINOPHEN 325 MG TABLET PO PRN (20:00)
[2020-06-26] MEDS ORDERED: LORAZEPAM 1 MG TABLET PO PRN (20:00)
[2020-06-26] MEDS ORDERED: LORAZEPAM 0.5 MG TABLET PO PRN (20:00)
[2020-06-26] MEDS ORDERED: BLOOD SUGAR DIAGNOSTIC 1 EACH STRIP IN ONE (20:00)
[2020-06-27] MEDS ORDERED: *INS REG3 SQ (04:01)
[2020-06-27] MEDS ORDERED: DEXTROSE 50%-WATER 50 ML DISP.SYRIN IV PRN (04:30)
[2020-06-27] MEDS ORDERED: INSULIN REGULAR, HUMAN 100 UNIT/ML 3 ML VIAL SQ PRN (04:30)
[2020-06-27] MEDS: BLOOD SUGAR DIAGNOSTIC 1 EACH STRIP IN SCH ×4 (07:30→21:17)
--- NOTE | 2020-06-27 07:38 | NUR ---
RN-CO: Patient refused blood sugar check.
[2020-06-27 08:10] VITALS: BP 126/57
[2020-06-27 08:13] LABS: BILIRUBIN,TOTAL 0.3 mg/dL (0.2-1.0); CALCIUM, SERUM 8.6 mg/dL (8.5-10.1); CREATININE 1.1 mg/dL (0.6-1.3); POTASSIUM 4.4 mmol/L (3.5-5.1); TOTAL PROTEIN, SERUM 6.5 g/dL (6.4-8.2)
[2020-06-27] MEDS ORDERED: OLANZAPINE 5 MG TABLET PO SCH (09:30)
[2020-06-27] MEDS: THIAMINE HCL 100 MG TABLET PO SCH (09:30)
--- NOTE | 2020-06-27 11:30 | NUR ---
RN-CO: Patient refused blood sugar check.
[2020-06-27] MEDS: DIVALPROEX SODIUM 250 MG TABLET.DR PO SCH ×2 (12:05→16:37)
--- NOTE | 2020-06-27 12:08 | NUR ---
RN-CO: Patient is doing racial slurs, he stated " Filipinos have thick accent, It is hard to understand when you guys are talking."
[2020-06-27] MEDS ORDERED: DIVALPROEX SODIUM 250 MG TABLET.DR PO SCH (13:00)
--- NOTE | 2020-06-27 13:55 | NUR ---
RACHEL Initial Discharge Plan: Patient is currently homeless and will need alternate SNF placement. Patient requested SNF placement for post discharge. Patient does not have any family or supportive contacts. SW will continue to work with patient and MD to ensure a safe and proper discharge plan.
--- NOTE | 2020-06-27 14:29 | NUR ---
RACHEL SNF Referral: RACHEL faxed patient's referral packet for review and possible placement to: [facility] [phone] [phone] attention to Roxanne. Addendum: 06/27/20 at 1543 by TREVA IRLEY [facility] denied the patient. Addendum: 06/29/20 at 0826 by TREVA RILEY [facility] was unable to accept the patient however their sister facility [facility] are able to accept the patient.
[2020-06-27 15:17] VITALS: BP 116/74
--- NOTE | 2020-06-27 16:45 | NUR ---
RN-CO: Patient refused blood sugar check , pt stated " I don't need it!"
[2020-06-27 20:14] VITALS: BP 128/61
[2020-06-27] MEDS: OLANZAPINE 5 MG TABLET PO SCH (21:17)
--- NOTE | 2020-06-27 21:33 | NUR ---
RN note:patient refused blood sugar check.
[2020-06-28] MEDS: BLOOD SUGAR DIAGNOSTIC 1 EACH STRIP IN SCH ×4 (07:30→21:00)
[2020-06-28 08:00] VITALS: BP 106/50
[2020-06-28] MEDS: MULTIPLE VIT (LYCOPENE/FA/MV,CA,IRON,MIN/LUT)1 TAB PO SCH (08:25)
[2020-06-28] MEDS: OLANZAPINE 5 MG TABLET PO SCH ×2 (08:25→20:50)
[2020-06-28] MEDS: DIVALPROEX SODIUM 250 MG TABLET.DR PO SCH ×3 (08:25→16:30)
[2020-06-28] MEDS: THIAMINE HCL 100 MG TABLET PO SCH (08:25)
--- NOTE | 2020-06-28 09:04 | NUR ---
SW Substance Abuse Intervention: Patient was provided with a brief substance abuse intervention and referred to the following substance abuse programs: [facility]stance Abuse Self-helpline ([phone]); [facility] [address] [place] [address] ([phone]); [facility] [address] [facility] [address] ([phone]); [facility] ([phone]); [facility] ([phone]); [facility] ([phone]); [facility] ([phone]).
[2020-06-28 18:00] VITALS: BP 109/48
[2020-06-28 21:09] VITALS: BP 130/50
[2020-06-29] MEDS: BLOOD SUGAR DIAGNOSTIC 1 EACH STRIP IN SCH ×5 (07:30→21:30)
--- NOTE | 2020-06-29 07:30 | NUR ---
RN-CO: Patient refused blood sugar check. Enc several times but got irritated.
[2020-06-29 07:41] VITALS: BP 105/52
[2020-06-29] MEDS: DIVALPROEX SODIUM 250 MG TABLET.DR PO SCH ×3 (08:05→16:58)
[2020-06-29] MEDS: MULTIPLE VIT (LYCOPENE/FA/MV,CA,IRON,MIN/LUT)1 TAB PO SCH (08:05)
[2020-06-29] MEDS: OLANZAPINE 5 MG TABLET PO SCH ×2 (08:05→21:30)
[2020-06-29] MEDS: THIAMINE HCL 100 MG TABLET PO SCH (08:05)
[2020-06-29 18:05] VITALS: BP 140/76
[2020-06-29 19:43] VITALS: BP 95/41
[2020-06-30] MEDS: BLOOD SUGAR DIAGNOSTIC 1 EACH STRIP IN SCH ×4 (07:30→21:48)
[2020-06-30 08:00] VITALS: BP 100/50
[2020-06-30] MEDS: MULTIPLE VIT (LYCOPENE/FA/MV,CA,IRON,MIN/LUT)1 TAB PO SCH (08:03)
[2020-06-30] MEDS: OLANZAPINE 5 MG TABLET PO SCH ×2 (08:03→21:27)
[2020-06-30] MEDS: THIAMINE HCL 100 MG TABLET PO SCH (08:03)
[2020-06-30] MEDS: DIVALPROEX SODIUM 250 MG TABLET.DR PO SCH ×3 (08:03→17:09)
--- NOTE | 2020-06-30 08:33 | NUR ---
RN-CO: Patient refused bllod sugar check at before breakfast and he refused lab works. Discussed the importance to him but still refused.
[2020-06-30 16:00] VITALS: BP 108/65
--- NOTE | 2020-06-30 19:30 | NUR ---
GPS RN NOTE, RECEIVED PATIENT AWAKE AND IN BED, NO S/S OR COMPLAINTS OF PAIN AT THIS TIME. PATIENT IS DISPLAYING NO S/S OF APPARENT DISTRESS AT THIS TIME. PATIENT BREATHING IS UNLABORED WITH EQUAL RISE AND FALL OF THE CHEST. PATIENT IS ALERT AND ORIENTED X 3 ON ROOM AIR WITH A SPO2 97%. PATIENT IS COMPLIANT WITH MEDICATIONS, ANXIOUS AT TIMES, NEEDY, DEPRESSED, AND COOPERATIVE. PATIENT DENIES SUICIDAL AND HOMICIDAL IDEATIONS AT THIS TIME. PATIENT ASSISTED WITH TURNING AND REPOSITIONING Q2HR AND PRN FOR COMFORT AND CIRCULATION. PATIENT HAS NO NEEDS AT THIS TIME. PATIENT EDUCATED ON THE USE OF THE CALL BECKER. PATIENT BED SIDE RAILS UP X 2 FOR SAFETY. PATIENT BED IS LOCKED, LOW, WITH BED ALARM ON. WILL CONTINUE TO MONITOR THIS PATIENT Q15 MINUTES WITH THE HELP OF STAFF TO MAINTAIN SAFETY.
[2020-06-30 20:08] VITALS: BP 110/56
--- NOTE | 2020-06-30 21:48 | NUR ---
GPS RN NOTE, PATIENT REFUSED TO PERFORM ACCU CHECK AT THIS TIME. OFFERED TO PERFORM ACCU CHECK THREE TIMES AND STILL PATIENT REFUSED STATING, " NO I DON'T NEED THAT ". EDUCATED PATIENT ON THE RISKS AND BENEFITS OF HAVING AN ACCU CHECK PERFORMED.
[2020-07-01] MEDS: BLOOD SUGAR DIAGNOSTIC 1 EACH STRIP IN SCH ×4 (07:19→21:39)
--- NOTE | 2020-07-01 07:19 | NUR ---
GPS RN NOTES PT AWAKE AND RESTING IN BED AT THIS TIME. REFUSED ACCUCHECK THIS MORNING DESPITE EXPLAINING RISKS AND BENEFITS. WILL CONTINUE TO MONITOR.
[2020-07-01] MEDS: DIVALPROEX SODIUM 250 MG TABLET.DR PO SCH ×3 (08:21→16:50)
[2020-07-01] MEDS: THIAMINE HCL 100 MG TABLET PO SCH (08:21)
[2020-07-01] MEDS: MULTIPLE VIT (LYCOPENE/FA/MV,CA,IRON,MIN/LUT)1 TAB PO SCH (08:21)
[2020-07-01] MEDS: OLANZAPINE 5 MG TABLET PO SCH ×2 (08:21→21:39)
--- NOTE | 2020-07-01 09:00 | NUR ---
SW Coordination of Care: Per Leobardo marley ([phone]), pt is accepted at [facility], [facility], and [facility].
[2020-07-01 10:02] VITALS: BP 102/57
--- NOTE | 2020-07-01 12:32 | NUR ---
PC Hearing: Patient's court hearing was held today and it was upheld for gravely disabled and danger to himself.
--- NOTE | 2020-07-01 13:12 | NUR ---
RN NOTES PATIENT SEEN BY DR CHANCE THIS MORNING AND PLACED PT ON 14DAY HOLD( [id number]).
[2020-07-01 16:39] VITALS: BP 122/62
[2020-07-01 19:58] VITALS: BP 111/62
[2020-07-02] MEDS: BLOOD SUGAR DIAGNOSTIC 1 EACH STRIP IN SCH ×4 (07:30→22:00)
[2020-07-02 08:00] VITALS: BP 95/44
[2020-07-02] MEDS: DIVALPROEX SODIUM 250 MG TABLET.DR PO SCH ×3 (08:33→16:49)
[2020-07-02] MEDS: MULTIPLE VIT (LYCOPENE/FA/MV,CA,IRON,MIN/LUT)1 TAB PO SCH (08:33)
[2020-07-02] MEDS: THIAMINE HCL 100 MG TABLET PO SCH (08:33)
[2020-07-02 09:45] VITALS: BP 115/79
[2020-07-02] MEDS: OLANZAPINE 5 MG TABLET PO SCH ×2 (09:56→21:24)
[2020-07-02 12:00] VITALS: BP 111/75
[2020-07-02 20:00] VITALS: BP 117/93
[2020-07-02 20:31] VITALS: BP 117/73
--- NOTE | 2020-07-02 22:01 | NUR ---
GPS RN NOTE: REFUSED ACCU CHECK PATIENT REFUSED TO PERFORM ACCU CHECK X 3. EDUCATED PATIENT ON THE RISKS AND BENEFITS OF HAVING AN ACCU CHECK PERFORMED BUT PATIENT CONTINUED TO REFUSE.
--- NOTE | 2020-07-03 05:58 | NUR ---
GPS RN NOTE PATIENT SLEPT WELL AT NIGHT, NO BEHAVIOR EPISODES NOTED.
[2020-07-03] MEDS: BLOOD SUGAR DIAGNOSTIC 1 EACH STRIP IN SCH ×4 (07:30→21:46)
[2020-07-03 08:00] VITALS: BP 117/65
[2020-07-03] MEDS: DIVALPROEX SODIUM 250 MG TABLET.DR PO SCH ×3 (08:51→17:59)
[2020-07-03] MEDS: OLANZAPINE 5 MG TABLET PO SCH ×2 (08:52→21:46)
[2020-07-03] MEDS: THIAMINE HCL 100 MG TABLET PO SCH (08:52)
[2020-07-03] MEDS: MULTIPLE VIT (LYCOPENE/FA/MV,CA,IRON,MIN/LUT)1 TAB PO SCH (08:52)
[2020-07-03 16:00] VITALS: BP 110/53
[2020-07-04] MEDS: BLOOD SUGAR DIAGNOSTIC 1 EACH STRIP IN SCH ×4 (07:30→21:11)
[2020-07-04 08:00] VITALS: BP 105/50
[2020-07-04] MEDS: THIAMINE HCL 100 MG TABLET PO SCH (08:07)
[2020-07-04] MEDS: MULTIPLE VIT (LYCOPENE/FA/MV,CA,IRON,MIN/LUT)1 TAB PO SCH (08:08)
[2020-07-04] MEDS: DIVALPROEX SODIUM 250 MG TABLET.DR PO SCH ×3 (08:08→17:21)
[2020-07-04] MEDS: OLANZAPINE 5 MG TABLET PO SCH ×2 (08:08→20:51)
--- NOTE | 2020-07-04 09:00 | NUR ---
RN NOTE- PT WITHDRAWN ISOLATIVE AT TIMES IRRITABLE TALKING TO SELF, DENIES SI HI AH VH, MED COMPLIANT W GOOD PO INTAKE . PT DIRTY DISHEVELED REFUSES ADLS GROOMING FOCUS ON FOOD
[2020-07-04 16:02] VITALS: BP 96/63
[2020-07-04 20:27] VITALS: BP 90/42
[2020-07-04 21:10] VITALS: BP 109/52
[2020-07-05] MEDS: BLOOD SUGAR DIAGNOSTIC 1 EACH STRIP IN SCH ×4 (07:30→21:43)
[2020-07-05 08:00] VITALS: BP 100/62
[2020-07-05] MEDS: DIVALPROEX SODIUM 250 MG TABLET.DR PO SCH ×3 (08:55→17:24)
[2020-07-05] MEDS: MULTIPLE VIT (LYCOPENE/FA/MV,CA,IRON,MIN/LUT)1 TAB PO SCH (08:55)
[2020-07-05] MEDS: OLANZAPINE 5 MG TABLET PO SCH ×2 (08:55→20:31)
[2020-07-05] MEDS: THIAMINE HCL 100 MG TABLET PO SCH (08:55)
--- NOTE | 2020-07-05 09:25 | NUR ---
Individual Intervention: SW met with the pt in the hallway and attempted to discuss his current admission but the pt stated that he did not want to talk about it and walked away from the SW.
[2020-07-05 16:00] VITALS: BP 122/64
[2020-07-05 20:45] VITALS: BP 110/59
[2020-07-06] MEDS: BLOOD SUGAR DIAGNOSTIC 1 EACH STRIP IN SCH ×4 (07:30→22:00)
[2020-07-06 08:00] VITALS: BP 99/57
[2020-07-06] MEDS: DIVALPROEX SODIUM 250 MG TABLET.DR PO SCH ×3 (08:36→16:18)
[2020-07-06] MEDS: OLANZAPINE 5 MG TABLET PO SCH ×2 (08:36→20:24)
[2020-07-06] MEDS: THIAMINE HCL 100 MG TABLET PO SCH (08:36)
[2020-07-06] MEDS: MULTIPLE VIT (LYCOPENE/FA/MV,CA,IRON,MIN/LUT)1 TAB PO SCH (08:36)
[2020-07-06 16:26] VITALS: BP 124/76
[2020-07-06 20:25] VITALS: BP 131/58
--- NOTE | 2020-07-06 22:18 | NUR ---
RN Note: Refused BS to be checked.
[2020-07-07] MEDS: BLOOD SUGAR DIAGNOSTIC 1 EACH STRIP IN SCH ×2 (07:30→12:00)
[2020-07-07 08:00] VITALS: BP 107/49
[2020-07-07] MEDS: DIVALPROEX SODIUM 250 MG TABLET.DR PO SCH ×2 (09:18→12:29)
[2020-07-07] MEDS: MULTIPLE VIT (LYCOPENE/FA/MV,CA,IRON,MIN/LUT)1 TAB PO SCH (09:18)
[2020-07-07] MEDS: THIAMINE HCL 100 MG TABLET PO SCH (09:19)
[2020-07-07] MEDS: OLANZAPINE 5 MG TABLET PO SCH (09:54)
--- NOTE | 2020-07-07 10:47 | NUR ---
Individual Intervention: SW met with the pt and informed him that he is going to be discharged today to his own plan of care. Pt stated that he was content about being discharged and that he is choosing to go to a sober living house on [address]. Pt states that he does not know the number of the house or what it is called but he knows where it is and how to get there. Pt then informed the SW of the buses that he would take, what stop he would get off on, and where he would turn on different streets to get to the house. SW stated that the pt has the ability to make his own decision but informed him that he has not contacted the sober [facility] and therefore we cannot be certain that they will have a bed available. SW also informed him that there are three nursing facilities that have accepted him. Pt stated that he wanted to be discharged with his plan to go to the sober living and stated that if they do not have a bed then he will leave [place] and that he knows a good place for him to stay in [place]. SW stated that she would return to his room with information on his discharge.
--- NOTE | 2020-07-07 10:50 | NUR ---
RN-CO: PATIENT IS CALM AND COOPERATIVE TO CARE. DENIED SI/HI. DENIED AUDITORY AND VISUAL HALLUCINATIONS. ALERT AND ORIENTED X4 AND ABLE TO MAKE NEEDS KNOWN.SELF CARE, DENIED PAIN AND DISCOMFORTS.HE HAS STABLE GAIT. MEDICALLY CLEARED BY DR CRUM TO BE DISCHARGE. SEEN AND EXAMINED BY DR CHANCE WITH ORDERS TO DISCONTINUE HOLD AND DISCHARGE HIM TODAY. PRESCRIPTIONS AND DISCHARGE PAPERS WERE DISCUSSED TO THE PATIENT AND HE VERBALIZED UNDERSTANDING. ALL BELONGINGS WILL BE GIVEN BACK TO THE PATIENT.
--- NOTE | 2020-07-07 11:09 | NUR ---
Discharge Note: Pt will be discharged to a placement of his own choosing. Pt stated that he will be going to a sober living located [place] [address] of [facility]. Pt states that he is aware of how to get to this sober living and informed the SW step by step how he would arrive. Pt does not have any family to contact. Pt will be discharged at 2pm and pt will be transported via bus as the pt is aware of which buses to take and what stops he should get off on. Upon discharge, the pt appears to be in a euthymic mood and presented with a distressed affect. Pt denies both suicidal and homicidal ideation as well as auditory and visual hallucinations. Pt was provided with homeless resources such as shelters, food rodas, showers, hot meals, health clinics, mental health clinics and substance abuse referrals. SW provided patient with the [phone] [facility] Program list. SW provided patient with a copy of the [facility] homeless directory which provides information on locations for hot meals, sack lunches, food pantries, and showers. SW provided an additional list of mental health clinics: [facility] [address] [place] [address] ([phone]); [facility] [address] [place] [address] ([phone]); a list of medical clinics; [facility] [address] [facility] [address], [place]. [place], ; [facility] [address] [facility], [address]. RACHEL Provided [facility] [address] [place] [address]: ([phone]). Patient was provided with a brief substance abuse intervention and referred to the following substance abuse programs: [facility] Substance Abuse Self-helpline ([phone]); [facility] [address] [place] [address] ([phone]); [facility] [address] [facility] [address] ([phone]); [facility] ([phone]); [facility] ([phone]); [facility] ([phone]); [facility] ([phone]). Pt was referred to [facility] Department of Mental Health located at [address] [place] [address]; ; fax was sent to: , for psychiatric services. Pt was also referred to [facility] located at [address], [place]; ; for medical services. Pt signed the homeless waiver and the multidisciplinary exit care form was done, printed, signed, and given to the patient.
--- NOTE | 2020-07-07 11:13 | NUR ---
RN-CO:PATIENT IS A/O X4,SELF CARE HE PREFERS TO GO TO A SOBER LIVING OF HIS CHOICE LOCATED AT [facility]. HE STATED HE IS AWARE OF HOW TO GET TO THIS SOBER LIVING (HE HAS $27.00) HE DOESN'T HAVE ANY FAMILY CONTACT. WE WILL PROVIDE TOKEN.
--- NOTE | 2020-07-07 13:00 | NUR ---
RN-CO: PATIENT ATE HIS LUNCH WELL, WE GAVE BACK HIS VALUABLES AND HIS SUITCASE WITH BELONGINGS. TAP CARD WAS GIVEN TO HIM. ESCORTED TO HOSPITAL LOBBY FOR DISCHARGE.
== END 2020-07-07 14:00 | disposition home or self-care (01) | DRG 885 ==
LOC: ER 05:20 → GPS 16:33
PROVIDERS: ADMIT Psychiatry & Neurology Psychiatry; ATTEND Student in an Organized Health Care Education/Training Program
DX: F31.2 Bipolar disorder, current episode manic severe with psychotic features (principal); R45.851 Suicidal ideations; F29 Unspecified psychosis not due to a substance or known physiological condition; E11.9 Type 2 diabetes mellitus without complications; F41.9 Anxiety disorder, unspecified; Z79.899 Other long term (current) drug therapy; F10.10 Alcohol abuse, uncomplicated; Y90.9 Presence of alcohol in blood, level not specified; M19.90 Unspecified osteoarthritis, unspecified site; G47.00 Insomnia, unspecified; Z59.0 Homelessness; F17.200 Nicotine dependence, unspecified, uncomplicated
CPT/HCPCS: 36415; 80048-TC; 80053-TC; 80061-TC; 80076-TC; 80164-TC; 82962-TC; 85025-TC; 87081-TC; C9803; G0480; J1815

== ENCOUNTER 2020-07-19 18:43 | Inpatient (IN) | payer MEDICARE, OTHER ==
[~2020-07-19] VITALS: Ht 182.9 cm; Wt 86.2 kg
[~2020-07-19 18:43] MED LIST changes: +*INS REG3 SQ
[2020-07-19 19:14] LABS: BASOPHILS % (AUTO) 0.2 % (0.0-2.0); EOSINOPHILS % (AUTO) 1.9 % (0.0-6.0); HEMATOCRIT 42 % (39-51); LYMPHOCYTES # (AUTO) 1.3 /CMM (0.8-4.8); LYMPHOCYTES % (AUTO) 16.7 % (20.0-44.0); MEAN CORPUSCULAR HGB CONC 33 g/dl (31.0-36.0); MEAN CORPUSCULAR VOLUME 89 fL (80-96); MONOCYTES # (AUTO) 0.8 /CMM (0.1-1.30); MONOCYTES % (AUTO) 9.8 % (2.0-12.0); NEUTROPHILS # (AUTO) 5.7 /CMM (1.8-8.9); NEUTROPHILS % (AUTO) 71.4 % (43.0-81.0); PLATELET COUNT (AUTO) 260 /CMM (150-450); RED BLOOD CELL COUNT(AUTO) 4.78 MIL/uL (4.5-6.0); WHITE BLOOD COUNT (AUTO) 7.9 K/uL (4.3-11.0)
[2020-07-19 19:22] LABS: CALCIUM, SERUM 8.9 mg/dL (8.5-10.1); CARBON DIOXIDE 30 mmol/L (21-32); CHLORIDE 103 mmol/L (98-107); CREATININE 1.3 mg/dL (0.6-1.3); GLUCOSE 98 mg/dL (74-106); POTASSIUM 3.9 mmol/L (3.5-5.1); SODIUM SERUM 139 mmol/L (136-145); UREA NITROGEN, BLOOD 18 mg/dL (7-18)
[2020-07-19 19:29] LABS: ALANINE AMINOTRANSFERASE 21 U/L (12-78); ALBUMIN 3.8 g/dL (3.4-5.0); ALCOHOL, BLOOD < 3 mg/dL (0-0); ALKALINE PHOSPHATASE 58 U/L (46-116); ASPARTATE AMINOTRANSFERASE 19 U/L (15-37); BILIRUBIN,DIRECT 0.1 mg/dL (0.0-0.2); BILIRUBIN,TOTAL 0.4 mg/dL (0.2-1.0); TOTAL PROTEIN, SERUM 7.8 g/dL (6.4-8.2)
[2020-07-19 19:30] LABS: ACETAMINOPHEN < 2 ug/ml (10-30)
[2020-07-19 22:00] VITALS: BP 95/50
[2020-07-19 23:26] VITALS: BP 95/50
[2020-07-19] MEDS ORDERED: ACETAMINOPHEN 325 MG TABLET PO PRN (23:30)
[2020-07-19] MEDS ORDERED: BLOOD SUGAR DIAGNOSTIC 1 EACH STRIP IN ONE (23:30)
[2020-07-19] MEDS ORDERED: MAGNESIUM HYDROXIDE 30 ML UDC PO PRN (23:30)
[2020-07-19] MEDS ORDERED: ZOLPIDEM TARTRATE 5 MG TABLET PO PRN (23:30)
[2020-07-19] MEDS ORDERED: LORAZEPAM 1 MG TABLET PO PRN (23:30)
[2020-07-19] MEDS ORDERED: MAG HYDROX/AL HYDROX/SIMETH 30 ML UDC PO PRN (23:30)
[2020-07-20 08:00] VITALS: BP 120/62
[2020-07-20 08:44] LABS: ALBUMIN 3.2 g/dL (3.4-5.0); BILIRUBIN,TOTAL 0.5 mg/dL (0.2-1.0); CALCIUM, SERUM 8.6 mg/dL (8.5-10.1); CREATININE 1.1 mg/dL (0.6-1.3); POTASSIUM 4.4 mmol/L (3.5-5.1); TOTAL PROTEIN, SERUM 6.3 g/dL (6.4-8.2)
[2020-07-20 08:46] LABS: CHOLESTEROL 156 mg/dL (<200); HDL CHOLESTEROL 37 mg/dL (40-60); LDL 114 mg/dL (0-99); TRIGLYCERIDES 88 mg/dL (30-150)
[2020-07-20] MEDS ORDERED: ESCITALOPRAM OXALATE (10 MG) 10 MG TABLET PO SCH (11:00)
[2020-07-20] MEDS ORDERED: OLANZAPINE 5 MG TABLET PO SCH (11:00)
[2020-07-20] MEDS: OLANZAPINE 5 MG TABLET PO SCH (16:36)
[2020-07-20 17:04] VITALS: BP 127/57
[2020-07-20] MEDS ORDERED: DEXTROSE 50%-WATER 50 ML DISP.SYRIN IV PRN (19:00)
[2020-07-20] MEDS: DIVALPROEX SODIUM 500 MG TABLET.DR PO SCH (21:00)
[2020-07-20] MEDS: BLOOD SUGAR DIAGNOSTIC 1 EACH STRIP IN SCH (22:00)
[2020-07-21] MEDS: BLOOD SUGAR DIAGNOSTIC 1 EACH STRIP IN SCH ×4 (07:30→21:53)
[2020-07-21 08:00] VITALS: BP 129/56
[2020-07-21] MEDS: DIVALPROEX SODIUM 500 MG TABLET.DR PO SCH ×2 (08:55→21:45)
[2020-07-21] MEDS: OLANZAPINE 5 MG TABLET PO SCH ×2 (08:55→16:56)
[2020-07-21] MEDS: NICOTINE PATCH (7MG) 7 MG PATCH.TD24 TD SCH (09:00)
[2020-07-21] MEDS: INSULIN REGULAR, HUMAN 100 UNIT/ML 3 ML VIAL SQ PRN (12:00)
[2020-07-21 16:00] VITALS: BP 113/66
[2020-07-21 20:21] LABS: BILIRUBIN,URINE NEGATIVE (NEGATIVE); COLOR,URINE YELLOW (YELLOW); LEUKOCYTE ESTERASE ,URINE NEGATIVE (NEGATIVE); NITRITE, URINE NEGATIVE (NEGATIVE); PH,URINE 6.5 (5.0-8.0); PROTEIN,URINE NEGATIVE (NEGATIVE); UGLUCOSE NEGATIVE (NEGATIVE); UROBILINOGEN,URINE 0.2 EU/dL (0.2)
[2020-07-21 20:31] VITALS: BP 112/52
[2020-07-22] MEDS: BLOOD SUGAR DIAGNOSTIC 1 EACH STRIP IN SCH ×4 (07:30→21:35)
[2020-07-22 08:00] VITALS: BP 117/62
[2020-07-22] MEDS: OLANZAPINE 5 MG TABLET PO SCH ×2 (10:00→16:50)
[2020-07-22] MEDS: NICOTINE PATCH (7MG) 7 MG PATCH.TD24 TD SCH (10:00)
[2020-07-22] MEDS: DIVALPROEX SODIUM 500 MG TABLET.DR PO SCH ×2 (10:00→21:35)
[2020-07-22 16:00] VITALS: BP 121/58
[2020-07-23] MEDS: BLOOD SUGAR DIAGNOSTIC 1 EACH STRIP IN SCH ×4 (07:30→21:22)
[2020-07-23 08:00] VITALS: BP 140/90
[2020-07-23] MEDS: NICOTINE PATCH (7MG) 7 MG PATCH.TD24 TD SCH (08:07)
[2020-07-23] MEDS: DIVALPROEX SODIUM 500 MG TABLET.DR PO SCH ×2 (08:07→21:17)
[2020-07-23] MEDS: OLANZAPINE 5 MG TABLET PO SCH ×2 (08:07→17:24)
[2020-07-24] MEDS: BLOOD SUGAR DIAGNOSTIC 1 EACH STRIP IN SCH ×4 (07:30→22:00)
[2020-07-24 08:00] VITALS: BP 95/53
[2020-07-24] MEDS: DIVALPROEX SODIUM 500 MG TABLET.DR PO SCH ×2 (09:01→20:39)
[2020-07-24] MEDS: NICOTINE PATCH (7MG) 7 MG PATCH.TD24 TD SCH (09:01)
[2020-07-24] MEDS: OLANZAPINE 5 MG TABLET PO SCH ×2 (09:01→16:31)
[2020-07-24 16:00] VITALS: BP 102/55
[2020-07-24 20:00] VITALS: BP 113/59
[2020-07-25] MEDS: BLOOD SUGAR DIAGNOSTIC 1 EACH STRIP IN SCH ×4 (07:30→22:00)
[2020-07-25 08:00] VITALS: BP 152/82
[2020-07-25] MEDS: DIVALPROEX SODIUM 500 MG TABLET.DR PO SCH ×2 (08:31→21:21)
[2020-07-25] MEDS: OLANZAPINE 5 MG TABLET PO SCH ×2 (08:31→17:38)
[2020-07-25] MEDS: NICOTINE PATCH (7MG) 7 MG PATCH.TD24 TD SCH (09:42)
[2020-07-25 16:00] VITALS: BP 114/65
[2020-07-25 21:11] VITALS: BP 100/43
[2020-07-26] MEDS: BLOOD SUGAR DIAGNOSTIC 1 EACH STRIP IN SCH ×4 (07:30→21:42)
[2020-07-26 08:00] VITALS: BP 110/54
[2020-07-26] MEDS: NICOTINE PATCH (7MG) 7 MG PATCH.TD24 TD SCH (08:36)
[2020-07-26] MEDS: OLANZAPINE 5 MG TABLET PO SCH ×2 (08:41→17:54)
[2020-07-26] MEDS: DIVALPROEX SODIUM 500 MG TABLET.DR PO SCH ×2 (08:41→21:42)
[2020-07-26 16:00] VITALS: BP 140/67
[2020-07-26 20:34] VITALS: BP 105/45
[2020-07-27] MEDS: BLOOD SUGAR DIAGNOSTIC 1 EACH STRIP IN SCH ×4 (07:30→22:05)
[2020-07-27 08:00] VITALS: BP 100/57
[2020-07-27] MEDS: DIVALPROEX SODIUM 500 MG TABLET.DR PO SCH ×2 (08:20→20:56)
[2020-07-27] MEDS: OLANZAPINE 5 MG TABLET PO SCH ×2 (08:20→16:26)
[2020-07-27] MEDS: NICOTINE PATCH (7MG) 7 MG PATCH.TD24 TD SCH (08:21)
[2020-07-27 16:00] VITALS: BP 110/71
[2020-07-27 20:52] VITALS: BP 147/60
[2020-07-27] MEDS: INSULIN REGULAR, HUMAN 100 UNIT/ML 3 ML VIAL SQ PRN (22:06)
[2020-07-28] MEDS: BLOOD SUGAR DIAGNOSTIC 1 EACH STRIP IN SCH ×2 (07:30→12:00)
[2020-07-28 08:00] VITALS: BP 105/65
[2020-07-28] MEDS: OLANZAPINE 5 MG TABLET PO SCH (08:51)
[2020-07-28] MEDS: NICOTINE PATCH (7MG) 7 MG PATCH.TD24 TD SCH (08:51)
[2020-07-28] MEDS: DIVALPROEX SODIUM 500 MG TABLET.DR PO SCH (08:51)
== END 2020-07-28 13:30 | disposition home or self-care (01) | DRG 885 ==
LOC: ER 18:43 → GPS 20:02
PROVIDERS: ADMIT Psychiatry & Neurology Psychiatry; ATTEND Registered Nurse
DX: F31.64 Bipolar disorder, current episode mixed, severe, with psychotic features (principal); R45.851 Suicidal ideations; E11.9 Type 2 diabetes mellitus without complications; Z79.4 Long term (current) use of insulin; Z59.0 Homelessness; K21.9 Gastro-esophageal reflux disease without esophagitis; F17.210 Nicotine dependence, cigarettes, uncomplicated; Z79.899 Other long term (current) drug therapy; F10.10 Alcohol abuse, uncomplicated; Y90.0 Blood alcohol level of less than 20 mg/100 ml; Z20.822 Contact with and (suspected) exposure to COVID-19
CPT/HCPCS: 36415; 80048-TC; 80053-TC; 80061-TC; 80076-TC; 80164-TC; 82962-TC; 85025-TC; 87081-TC; G0480; J1815

== ENCOUNTER 2020-08-08 00:45 | Inpatient (IN) | payer MEDICARE, OTHER ==
[~2020-08-08] VITALS: Ht 193 cm; Wt 117.9 kg
--- NOTE | 2020-08-08 00:56 | NUR ---
PATIENT CAME TO THE ED BED 13 BIBSELF C/O SI PLANS TO TAKE LONG WALKS ON A SHORT PIER. PATIENT IS AAOX4. NOS OB. BREATHING EVENLY AND UNLABORED ON ROOM AIR. CONNECTED TO THE MONITOR. PATIENT'S BELIONGINGS ARE REMOVED AND SEPLACED INTO SAFE LOCKER. PATIENT IS GIVEN A GOWN AND PLACED ON SUICIDE PRECAUTIONS. SITTER IS AT BEDSIDE.
--- NOTE | 2020-08-08 01:04 | NUR ---
URINE COLLECTED AND SENT TO LAB
--- NOTE | 2020-08-08 01:23 | NUR ---
RADIO OPERATOR GROUND AT BEDSIDE FOR BLOOD DRAW
[2020-08-08 01:40] LABS: BASOPHILS # (AUTO) 0.1 /CMM (0.0-0.2); BASOPHILS % (AUTO) 0.8 % (0.0-2.0); EOSINOPHILS % (AUTO) 2.5 % (0.0-6.0); HEMATOCRIT 42 % (39-51); HEMOGLOBIN 13.8 g/dL (13.5-17.5); LYMPHOCYTES # (AUTO) 1.6 /CMM (0.8-4.8); LYMPHOCYTES % (AUTO) 20.3 % (20.0-44.0); MEAN CORPUSCULAR HGB CONC 33 g/dl (31.0-36.0); MEAN CORPUSCULAR VOLUME 88 fL (80-96); MONOCYTES # (AUTO) 0.8 /CMM (0.1-1.30); MONOCYTES % (AUTO) 10.2 % (2.0-12.0); NEUTROPHILS # (AUTO) 5.2 /CMM (1.8-8.9); NEUTROPHILS % (AUTO) 66.2 % (43.0-81.0); PLATELET COUNT (AUTO) 281 /CMM (150-450); RED BLOOD CELL COUNT(AUTO) 4.76 MIL/uL (4.5-6.0); WHITE BLOOD COUNT (AUTO) 7.8 K/uL (4.3-11.0)
[2020-08-08 01:41] LABS: BILIRUBIN,URINE SMALL (NEGATIVE); COLOR,URINE YELLOW (YELLOW); LEUKOCYTE ESTERASE ,URINE NEGATIVE (NEGATIVE); NITRITE, URINE NEGATIVE (NEGATIVE); PROTEIN,URINE NEGATIVE (NEGATIVE); UGLUCOSE NEGATIVE (NEGATIVE); UROBILINOGEN,URINE 0.2 EU/dL (0.2)
[2020-08-08 01:52] LABS: CALCIUM, SERUM 8.8 mg/dL (8.5-10.1); CARBON DIOXIDE 29 mmol/L (21-32); CHLORIDE 105 mmol/L (98-107); CREATININE 1.3 mg/dL (0.6-1.3); GLUCOSE 127 mg/dL (74-106); POTASSIUM 4.2 mmol/L (3.5-5.1); SODIUM SERUM 142 mmol/L (136-145); UREA NITROGEN, BLOOD 14 mg/dL (7-18)
[2020-08-08 01:58] LABS: ALANINE AMINOTRANSFERASE 21 U/L (12-78); ALBUMIN 3.8 g/dL (3.4-5.0); ALCOHOL, BLOOD < 3 mg/dL (0-0); ALKALINE PHOSPHATASE 64 U/L (46-116); ASPARTATE AMINOTRANSFERASE 17 U/L (15-37); BILIRUBIN,DIRECT 0.1 mg/dL (0.0-0.2); BILIRUBIN,TOTAL 0.2 mg/dL (0.2-1.0); TOTAL PROTEIN, SERUM 7.3 g/dL (6.4-8.2)
[2020-08-08 02:02] LABS: ACETAMINOPHEN 0 ug/ml (10-30)
--- NOTE | 2020-08-08 02:34 | NUR ---
ATTEMPTED TO CONTACT METALIZING SUPERVISOR LITTLE STONE FOR EVALUATION. LEFT MESSAGE, WILL FOLLOW UP
--- NOTE | 2020-08-08 04:11 | NUR ---
2nd attempt made to contact [facility] crisis clinican. was not able to reach her left voicemail.
--- NOTE | 2020-08-08 04:34 | NUR ---
PATIENT IS SLEEPING. EASILY AROUSABLE. BREATHING EVENLY AND UNLABORED ON ROOM AIR. CONNECTED TO THE MONITOR. BED AT THE LOWEST POSITION FOR SAFETY. PATIENT PROVIDED BLANKET FOR COMFORT. SITTER IS AT BEDSIDE. WILL CONTINUE TO MONITOR THE PATIENT CLOSELY.
--- NOTE | 2020-08-08 05:19 | NUR ---
ATTEMPTED TO CONTACT LEATHER DRIER LITTLE STONE FOR EVALUATION. NO ANSWER, WILL FOLLOW UP
--- NOTE | 2020-08-08 06:22 | NUR ---
SPOKE WITH WARP KNITTER HELPER CHASE FITCH. STATED WILL CALL BACK AT 7AM FOR POSSIBLE EVAL.
--- NOTE | 2020-08-08 07:10 | NUR ---
ORANGE PICKER MACHINE OPERATOR LITTLE STONE CALLED, STATED TO CALL [place] ORANGE PICKER MACHINE OPERATOR.
--- NOTE | 2020-08-08 07:43 | NUR ---
CARLOS CARDONA [phone]. COMING TO THE ER.
[2020-08-08] MEDS ORDERED: OLAN7.5T3 PO (09:51)
[2020-08-08] MEDS ORDERED: DIVA500T2 PO (09:51)
[2020-08-08] MEDS ORDERED: METF-440 PO (09:51)
--- NOTE | 2020-08-08 09:53 | NUR ---
GOT BED 215-B
[2020-08-08] MEDS ORDERED: NICO-676 TD (09:54)
--- NOTE | 2020-08-08 09:55 | NUR ---
CALLED [facility] FOR REPORT, NO ASSIGNED NURSE YET. WILL CALL BACK IN 10 MIN
--- NOTE | 2020-08-08 10:18 | NUR ---
REPORT GIVEN TO LORE FITCH OF [facility]
--- NOTE | 2020-08-08 10:44 | NUR ---
Social Service Consult: RACHEL consult request by ER staff for a 69 year old homeless male. RACHEL met with pt at ER bed 13 at 1005 am to do an assessment. Pt is alert and oriented x 3 ( place, self, and situation). Pt appears to be in an anxious mood and distress affect. Pt.'s speech is within normal limits. Pt is seeking help because he is having suicidal ideation. Pt expresses of having a plan to walk off the edge of a pier. Pt denies having homicidal ideation. Pt. is ungroomed, malodorous, and has proper attire (medical gown). Pt has hx of psychiatric hospitalization and psychotropic medication. Pt refuse explain further with hospitalization or current medications. Pt is non compliant during the assessment. Pt refuses to answer further questions asked by the SW. Pt offers psychiatric hospitalization. Pt verbally and voluntarily agrees to psychiatric hospitalization but would like to be admitted at [facility] ([facility]). Pt ambulates with steady gait and has no DME. Pt express she is currently unemployed but refuse to give any further information. Pt refuse to sign homeless waiver form. Pt's waiver form is placed in chart. RACHEL also offers resources with 1405-2753 [facility] packet and the list of alcohol and drug treatment program list. Pt was receptive to the resources given SW spoke to crisis team ([phone]) at ED, and Per Lulú, pt will be admitted at [facility] ([facility]). Mental Health resources provided: [facility] [address] [place] [address] ; [facility] [address] [facility] [address], [place] [address] ; [facility] [address] [place] [address] ; [facility] [place] [address] . Substance Abuse resources provided included: [facility] Substance Abuse Self-Help line (SASH) ; [facility] [address] [facility]. [place] [address] ; [facility] [address] [facility] [address] ; [facility] [address] [place] [address] ; [facility] [address] [facility] [address] ; [facility] [address] [facility] [place] [address] ; [facility] [address] [facility] [phone] ; [facility] Substance Abuse Help line (SAS[facility] ; [facility] Family Counseling ; [facility]; [facility] [place]; [facility] [place]; [facility] [place]; [facility] [place]; [facility]; [facility] [place]; [facility], [facility] [place]; Alcoholics Anonymous -SFV; M[facility] ; Marijuana Anonymous -SFV; Narcotics Anonymous www.na.org. Pt is receptive towards resources and list given by the SW during the assessment. Pt refuse to sign homeless waiver form and placed in pt's chart. SW also met with crisis team (Lulú [phone]) and discussed pt will admitted to [facility] ([facility]). Plan: Crisis team evaluated by ([phone]) for psychiatric hospitalization at [facility]). airfield services officer will be available upon request.
--- NOTE | 2020-08-08 11:00 | NUR ---
WAREHOUSE LABORER NOTE- PT ARRIVED TO UNIT 5150 GD FROM ED VIA GURNEY. ON FACE TO FACE ASSESSMENT, PT IS ALERT CONFUSED DISORGANIZED WITH FLAT AFFECT. SLOW TO RESPOND TO QUERY, ORIENTED TO SELF ONLY. HE IS 69 Y/O, 6 FT 4 INCHES TALL, AND 260 POUNDS. PTS V/S - BP- 120/72, HR- 75, RR- 18, T- 98.0 AND O2 SATURATION 95% RA. PT REFUSED ACCU CHECK . SKIN CHECK NOTED TO BE INTACT. PMHX - GERD, HTN, ETOH ABUSE, NICOTINE USE, ANXIETY, DEPRESSION AND PARANOID SCHIZOPHRENIA. PT IS A POOR HISTORIAN AT PRESENT BUT IS KNOWN TO THIS RN FROM PREVIOUS HOSPITALIZATIONS. DR INFORMED OF ADMISSION AND ORDERS RECEIVED. PT REFUSES VACCINES STATING "THEY DONT WORK ANYWAY. " HE HAS BEEN PREVIOUSLY NONMED COMPLIANT WITH THIS RN. ORIENTED TO ROUTINE AND UNIT. MEAL ORDERED, ASSISTED AND MONITORED. PT DENYING SI HI AH VH AT PRESENT THOUGH STATES " I WANTED TO TAKE A LONG WALK OFF A PIER" CONTRACTS FOR SAFETY BUT CURRENT MENTAL STATE MAKES THIS STATEMENT UNRELIABLE. WILL MONITOR CLOSELY.
[2020-08-08] MEDS ORDERED: ACETAMINOPHEN 325 MG TABLET PO PRN (12:00)
[2020-08-08] MEDS ORDERED: BLOOD SUGAR DIAGNOSTIC 1 EACH STRIP IN ONE (12:00)
[2020-08-08] MEDS ORDERED: MAG HYDROX/AL HYDROX/SIMETH 30 ML UDC PO PRN (12:00)
[2020-08-08] MEDS ORDERED: MAGNESIUM HYDROXIDE 30 ML UDC PO PRN (12:00)
[2020-08-08 16:00] VITALS: BP 153/67
[2020-08-08] MEDS: METFORMIN 500 MG TABLET PO SCH (18:35)
[2020-08-08 20:00] VITALS: BP 140/59
[2020-08-09 08:00] VITALS: BP 157/97
[2020-08-09] MEDS: METFORMIN 500 MG TABLET PO SCH ×2 (08:18→17:13)
[2020-08-09] MEDS: NICOTINE PATCH (7MG) 7 MG PATCH.TD24 TD SCH (08:19)
[2020-08-09] MEDS: OLANZAPINE 5 MG TABLET PO SCH ×2 (10:00→17:13)
[2020-08-09] MEDS: DIVALPROEX SODIUM 500 MG TABLET.DR PO SCH ×2 (10:00→21:11)
--- NOTE | 2020-08-09 10:01 | NUR ---
Homeless Navy Airspace Officer Contact: RACHEL called Zoë Alvarado ([phone]) and the mailbox was full so the SW will call back at another time.
[2020-08-09 16:00] VITALS: BP 111/57
--- NOTE | 2020-08-09 16:16 | NUR ---
[facility]PS DOLL MAKER: NOTES REFUSED BLOOD DRAW.
--- NOTE | 2020-08-09 19:20 | NUR ---
RN NOTES, PATIENT IN BED ASLEEP BUT AROUSES TO VERBAL STIMULI, NO DISTRESS NOTED, NO DISRUPTIVE BEHAVIOR NOTED, WILL CONTINUE TO MONITOR CLOSELY.
[2020-08-09 20:20] VITALS: BP 116/54
--- NOTE | 2020-08-10 06:45 | NUR ---
RN NOTES, PATIENT IN BED ASLEEP BUT AROUSES TO VERBAL STIMULI, NO DISTRESS NOTED, NO DISRUPTIVE BEHAVIOR NOTED, WITH ADEQUATE HOURS OF SLEEP, WILL ENDORSE CONTINUITY OF CARE TO ONCOMING NURSE.
[2020-08-10 08:00] VITALS: BP 105/58
[2020-08-10] MEDS: DIVALPROEX SODIUM 500 MG TABLET.DR PO SCH ×2 (09:00→21:41)
[2020-08-10] MEDS: NICOTINE PATCH (7MG) 7 MG PATCH.TD24 TD SCH (09:00)
[2020-08-10] MEDS: METFORMIN 500 MG TABLET PO SCH ×2 (09:01→17:31)
[2020-08-10] MEDS: OLANZAPINE 5 MG TABLET PO SCH ×2 (09:01→17:31)
[2020-08-10 16:00] VITALS: BP 118/63
[2020-08-10 19:59] VITALS: BP 93/55
[2020-08-11 08:00] VITALS: BP 135/67
[2020-08-11] MEDS: NICOTINE PATCH (7MG) 7 MG PATCH.TD24 TD SCH ×2 (08:55→08:58)
[2020-08-11] MEDS: METFORMIN 500 MG TABLET PO SCH ×2 (08:55→16:31)
[2020-08-11] MEDS: DIVALPROEX SODIUM 500 MG TABLET.DR PO SCH ×2 (08:55→21:37)
[2020-08-11] MEDS: OLANZAPINE 5 MG TABLET PO SCH ×2 (08:55→16:31)
--- NOTE | 2020-08-11 09:16 | NUR ---
Initial Discharge Plan: Pt is a homeless pt and is requesting a SNF placement. SW will work with the pt and pts MD regarding appropriate discharge planning. SW will form a safe and proper plan.
[2020-08-11 16:00] VITALS: BP 91/64
[2020-08-11 20:29] VITALS: BP 117/36
[2020-08-11] MEDS: LORAZEPAM 1 MG TABLET PO PRN (21:36)
[2020-08-11] MEDS: ZOLPIDEM TARTRATE 5 MG TABLET PO PRN (21:36)
[2020-08-12 08:00] VITALS: BP 105/54
[2020-08-12] MEDS: DIVALPROEX SODIUM 500 MG TABLET.DR PO SCH ×2 (08:25→21:51)
[2020-08-12] MEDS: OLANZAPINE 5 MG TABLET PO SCH ×2 (08:25→16:53)
[2020-08-12] MEDS: METFORMIN 500 MG TABLET PO SCH ×2 (08:25→16:53)
[2020-08-12] MEDS: NICOTINE PATCH (7MG) 7 MG PATCH.TD24 TD SCH (08:27)
[2020-08-12 16:00] VITALS: BP 110/67
[2020-08-12 20:21] VITALS: BP 126/57
[2020-08-12] MEDS: LORAZEPAM 1 MG TABLET PO PRN (21:51)
[2020-08-12] MEDS: ZOLPIDEM TARTRATE 5 MG TABLET PO PRN (21:51)
[2020-08-13 08:00] VITALS: BP 108/66
[2020-08-13] MEDS: NICOTINE PATCH (7MG) 7 MG PATCH.TD24 TD SCH (09:00)
[2020-08-13] MEDS: DIVALPROEX SODIUM 500 MG TABLET.DR PO SCH ×2 (09:42→20:29)
[2020-08-13] MEDS: OLANZAPINE 5 MG TABLET PO SCH ×2 (09:42→16:48)
[2020-08-13] MEDS: METFORMIN 500 MG TABLET PO SCH ×2 (09:42→16:48)
[2020-08-13 16:00] VITALS: BP 97/65
[2020-08-13 20:43] VITALS: BP 123/68
[2020-08-14 08:00] VITALS: BP 120/52
[2020-08-14] MEDS: DIVALPROEX SODIUM 500 MG TABLET.DR PO SCH ×2 (08:20→20:59)
[2020-08-14] MEDS: OLANZAPINE 5 MG TABLET PO SCH ×2 (08:20→16:17)
[2020-08-14] MEDS: METFORMIN 500 MG TABLET PO SCH ×2 (08:20→16:17)
[2020-08-14] MEDS: NICOTINE PATCH (7MG) 7 MG PATCH.TD24 TD SCH (08:22)
--- NOTE | 2020-08-14 08:22 | NUR ---
RN NOTES PT REFUSED NICOTINE PATCH DUE TAT 9AM, EXPLAINED RISK AND BENEFITS OF MEDICATION. PT STATED HE "I NEVER SMOKE SO I DON'T NEED IT". PATIENT SAFETY CONTINUE TO ADDRESS. WILL CONTINUE TO MONITOR
[2020-08-14 16:00] VITALS: BP 144/61
[2020-08-14 19:49] VITALS: BP 124/47
[2020-08-15 08:00] VITALS: BP 112/74
[2020-08-15] MEDS: DIVALPROEX SODIUM 500 MG TABLET.DR PO SCH ×2 (08:48→20:55)
[2020-08-15] MEDS: METFORMIN 500 MG TABLET PO SCH ×2 (08:48→16:42)
[2020-08-15] MEDS: NICOTINE PATCH (7MG) 7 MG PATCH.TD24 TD SCH (08:49)
[2020-08-15] MEDS: OLANZAPINE 5 MG TABLET PO SCH ×2 (08:49→16:42)
--- NOTE | 2020-08-15 09:52 | NUR ---
SNF Referral: RACHEL faxed a referral to [facility] SNF with attn to BRAD and Leobardo to the fax number: [phone].
--- NOTE | 2020-08-15 09:53 | NUR ---
Probable Cause Hearing: Pts 5250 hold was upheld for grave disability.
--- NOTE | 2020-08-15 10:00 | NUR ---
RN Open Notes: Patient easily arousable and alert. Denies pain/discomforts. Compliant with medication. Meal consumed. Admits he continues to hear voices and responds but voices "aren't telling me to do anything, they just talk." No disrupted behaviors noted.
--- NOTE | 2020-08-15 14:41 | NUR ---
SNF Contact: BRAD ([phone]) from [facility] contacted the SW and stated that the pt was accepted to their facility.
[2020-08-15 16:00] VITALS: BP 127/77
--- NOTE | 2020-08-15 18:46 | NUR ---
RN Closing Note: Patient in day room most of shift, calm/cooperative. Continues to hear nonviolent voices. No aggressive behaviors.
[2020-08-15 19:56] VITALS: BP 90/43
[2020-08-16 08:00] VITALS: BP 121/89
[2020-08-16] MEDS: DIVALPROEX SODIUM 500 MG TABLET.DR PO SCH ×2 (08:32→20:28)
[2020-08-16] MEDS: OLANZAPINE 5 MG TABLET PO SCH ×2 (08:32→16:09)
[2020-08-16] MEDS: METFORMIN 500 MG TABLET PO SCH ×2 (08:32→16:09)
[2020-08-16] MEDS: NICOTINE PATCH (7MG) 7 MG PATCH.TD24 TD SCH (08:50)
[2020-08-16 16:00] VITALS: BP 97/50
[2020-08-16 20:00] VITALS: BP 108/86
[2020-08-17 08:00] VITALS: BP 105/54
[2020-08-17] MEDS: METFORMIN 500 MG TABLET PO SCH ×2 (08:41→16:55)
[2020-08-17] MEDS: OLANZAPINE 5 MG TABLET PO SCH ×2 (08:42→16:54)
[2020-08-17] MEDS: DIVALPROEX SODIUM 500 MG TABLET.DR PO SCH ×2 (08:43→21:00)
[2020-08-17] MEDS: NICOTINE PATCH (7MG) 7 MG PATCH.TD24 TD SCH (08:46)
[2020-08-17 16:00] VITALS: BP 132/56
[2020-08-17 20:53] VITALS: BP 102/52
[2020-08-18 08:00] VITALS: BP 106/65
[2020-08-18] MEDS: METFORMIN 500 MG TABLET PO SCH (08:46)
[2020-08-18] MEDS: DIVALPROEX SODIUM 500 MG TABLET.DR PO SCH (08:46)
[2020-08-18] MEDS: OLANZAPINE 5 MG TABLET PO SCH (08:47)
[2020-08-18] MEDS: NICOTINE PATCH (7MG) 7 MG PATCH.TD24 TD SCH (08:47)
--- NOTE | 2020-08-18 09:18 | NUR ---
Discharge Note: Pt will be discharged to [facility] (SNF) located at [address] [place] [address]; ([phone]). Pt will be transported via [facility] (Trip #[id number]) at 3PM. does not have anyone to inform about the pts discharge. Upon discharge, the pt appears to be in a euthymic mood and presented with a congruent affect. Pt appears to be alert and oriented x4 (time, place, self and situation). Pt denies both suicidal and homicidal ideation as well as auditory and visual hallucinations. Pt appears to be ambulatory with an unsteady gait. Pt appears to be well groomed and appropriately dressed. RACHEL provided patient with the 2019 [facility] Detention Program list. SW provided patient with a copy of the [facility] homeless directory which provides information on locations for hot meals, sack lunches, food pantries, and showers. RACHEL provided an additional list of mental health clinics: [facility] [address] [place] [address] ([phone]); [facility] [address] [place] [address] ([phone]); a list of medical clinics; [facility] [address] [facility] [address], [place]. [place], ; [facility] [address] [facility] [address], [place]. RACHEL Provided [facility] [address] [place] [address]: ([phone]). Patient was provided with a brief substance abuse intervention and referred to the following substance abuse programs: [facility] Substance Abuse Self-helpline ([phone]); [facility] [address] [place] [address] ([phone]); [facility] [address] [facility] [address] ([phone]); [facility] ([phone]); [facility] ([phone]); [facility] ([phone]); [facility] ([phone]). Pt will continue to be under the care of psychiatrist, Dr. Alvarez, located at [address] [facility] [address], [place] [address]; . Pt will be under the care of print producer, Dr. Estrella, located at [address] [place] [address]; . Pts homeless waiver, choice of vendor form, and multidisciplinary exit care form were done, printed, signed, and given to the patient.
--- NOTE | 2020-08-18 10:11 | NUR ---
RN-CO: Patient is calm and cooperative to care, A/O x4 . Denied suicidal and homicidal ideation. Denied auditory and visual hallucination. Medically cleared for discharge by Dr Bell. Dr Alvarez gave discharge order and discontinue hold, noted and carried out.
--- NOTE | 2020-08-18 11:00 | NUR ---
RN-CO: Explained the discharge papers to patient, and his prescribed medicines and he verbalized understanding. I offered Nicotine patch and he agreed. Dr Bell continued the order. Homeless checklist was done.
--- NOTE | 2020-08-18 11:22 | NUR ---
RN-CO: REPORT GIVEN TO "DANA FITCH.
[2020-08-18] MEDS: LORAZEPAM 1 MG TABLET PO PRN (12:30)
--- NOTE | 2020-08-18 15:27 | NUR ---
69 y/o male discharged to [facility] in stable condition. Affect blunt, mood passive and labile. Cooperative and compliant. Medications reviewed and prescriptions given. Discussed aftercare at [facility] and the need for monthly levels to be drawn. Behavior improved-less agitated, denies suicidal or homicidal ideations at this time. Treatment plan goals met. Given copy of aftercare plan and belongings returned. Escorted to [facility] via stretcher by ambulance personnel x 2. Report given to LITTLE Green at SNF.
--- NOTE | 2020-08-18 15:30 | NUR ---
RN-CO: Patient was picked up by Ambulance , all his belongings were given back to the patient.
== END 2020-08-18 15:30 | DRG 885 ==
LOC: ER 00:48 → GPS 10:13
PROVIDERS: ADMIT Psychiatry & Neurology Psychiatry; ATTEND Nurse Practitioner Acute Care
DX: F31.64 Bipolar disorder, current episode mixed, severe, with psychotic features (principal); E11.9 Type 2 diabetes mellitus without complications; F17.210 Nicotine dependence, cigarettes, uncomplicated; G89.29 Other chronic pain; Z73.6 Limitation of activities due to disability; F29 Unspecified psychosis not due to a substance or known physiological condition; K21.9 Gastro-esophageal reflux disease without esophagitis; Z59.0 Homelessness; E66.9 Obesity, unspecified; Z68.31 Body mass index [BMI] 31.0-31.9, adult; Z20.822 Contact with and (suspected) exposure to COVID-19; F10.10 Alcohol abuse, uncomplicated; Z79.84 Long term (current) use of oral hypoglycemic drugs
CPT/HCPCS: 36415; 80048-TC; 80076-TC; 85025-TC; 87081-TC; C9803; G0480

== ENCOUNTER 2021-08-09 17:20 | Emergency (ER) | payer MEDICARE, MEDICAID ==
[~2021-08-09] VITALS: Ht 182.9 cm; Wt 113.9 kg
[~2021-08-09 17:20] MED LIST changes: -*INS REG3 SQ; +DIVA500T2 PO; +METF-440 PO; +NICO-676 TD; -OLAN2.5T3 PO; +OLAN7.5T3 PO
--- NOTE | 2021-08-09 17:27 | NUR ---
TO ER BED 11, C/O FEELING DEPRESSED AND SUICIDAL, AAOX3, BREATHING EVEN AND NON LABORED, AWAITING MD ENRIQUEZ
--- NOTE | 2021-08-09 17:45 | NUR ---
URINE COLLECTED AND SENT TO LAB
[2021-08-09 18:06] LABS: BILIRUBIN,URINE NEGATIVE (NEGATIVE); COLOR,URINE YELLOW (YELLOW); LEUKOCYTE ESTERASE ,URINE NEGATIVE (NEGATIVE); NITRITE, URINE NEGATIVE (NEGATIVE); PH,URINE 5.5 (5.0-8.0); PROTEIN,URINE NEGATIVE (NEGATIVE); UGLUCOSE NEGATIVE (NEGATIVE); UROBILINOGEN,URINE 0.2 EU/dL (0.2)
--- NOTE | 2021-08-09 18:11 | NUR ---
COVID SWAB DONE AND SENT TO LAB
--- NOTE | 2021-08-09 19:40 | NUR ---
GREGORIA FROM INTAKE, PT NOT ACCEPTED
[2021-08-09 20:34] LABS: BASOPHILS # (AUTO) 0.1 K/uL (0.0-0.2); BASOPHILS % (AUTO) 0.7 % (0.0-2.0); EOSINOPHILS % (AUTO) 2.5 % (0.0-6.0); HEMATOCRIT 44 % (39-51); HEMOGLOBIN 14.9 g/dL (13.5-17.5); LYMPHOCYTES # (AUTO) 1.9 K/uL (0.8-4.8); LYMPHOCYTES % (AUTO) 24.1 % (20.0-44.0); MEAN CORPUSCULAR HGB CONC 34 g/dl (31.0-36.0); MEAN CORPUSCULAR VOLUME 86 fL (80-96); MONOCYTES # (AUTO) 0.8 K/uL (0.1-1.30); MONOCYTES % (AUTO) 10.3 % (2.0-12.0); NEUTROPHILS # (AUTO) 4.8 K/uL (1.8-8.9); NEUTROPHILS % (AUTO) 62.4 % (43.0-81.0); PLATELET COUNT (AUTO) 262 K/uL (150-450); RED BLOOD CELL COUNT(AUTO) 5.11 MIL/uL (4.5-6.0); WHITE BLOOD COUNT (AUTO) 7.7 K/uL (4.3-11.0)
[2021-08-09] MEDS ORDERED: OLANZAPINE 5 MG TABLET PO ONE (21:30)
[2021-08-09 21:33] LABS: CALCIUM, SERUM 8.9 mg/dL (8.5-10.1); CARBON DIOXIDE 24 mmol/L (21-32); CHLORIDE 105 mmol/L (98-107); CREATININE 1.2 mg/dL (0.6-1.3); GLUCOSE 154 mg/dL (74-106); POTASSIUM 4.1 mmol/L (3.5-5.1); SODIUM SERUM 138 mmol/L (136-145); UREA NITROGEN, BLOOD 16 mg/dL (7-18)
[2021-08-09 21:39] LABS: ALANINE AMINOTRANSFERASE 52 U/L (12-78); ALBUMIN 3.5 g/dL (3.4-5.0); ALCOHOL, BLOOD < 3 mg/dL (0-0); ALKALINE PHOSPHATASE 56 U/L (46-116); ASPARTATE AMINOTRANSFERASE 26 U/L (15-37); BILIRUBIN,DIRECT 0.1 mg/dL (0.0-0.2); BILIRUBIN,TOTAL 0.6 mg/dL (0.2-1.0); TOTAL PROTEIN, SERUM 7.1 g/dL (6.4-8.2)
[2021-08-09] MEDS ORDERED: OLANZAPINE 5 MG TABLET ONE (21:39)
[2021-08-09 22:01] LABS: ACETAMINOPHEN < 0 ug/ml (10-30)
--- NOTE | 2021-08-10 08:36 | NUR ---
CARLITOS HELTON CALLED FOR EVAL AND PLACEMENT
--- NOTE | 2021-08-10 10:15 | NUR ---
PT RESTING IN BED COMFORTABLY, VITAL SIGNS ARE WITHIN NORMAL LIMITS.
--- NOTE | 2021-08-10 10:55 | NUR ---
RACHEL met with pt. bedside for safe DC planning. The pt. is ALERT & ORIENTED X 4 and makes good eye contact. The pt. stated he was at [facility] and would like SNF placement or to return to [facility] if possible. RACHEL defered to Octavia DELGADO who will attempt to place pt. SW will be available as needed.
--- NOTE | 2021-08-10 11:15 | NUR ---
RACHEL received call from Octavia DELGADO statign that [facility] [[facility] [address]; [phone]] is acceptign pt. back. RACHEL called ED an spoke to Domingo FITCH that nurse to nurse report must be completed by calling [phone] and transportation must be arranged within the next hour.
--- NOTE | 2021-08-10 11:34 | NUR ---
PER RACHEL THOMAS, PT WILL GO BACK TO [facility]. # FOR REPORT [phone]
[2021-08-10 11:59] VITALS: BP 122/72
--- NOTE | 2021-08-10 12:45 | NUR ---
[facility] CALLED ETA 10-15 MINS
--- NOTE | 2021-08-10 12:53 | NUR ---
REPORT GIVEN TO GAURANG
--- NOTE | 2021-08-10 13:32 | NUR ---
TRANSPORTATION HAS ARRIVED, REPORT WAS GIVEN, PT TRANSPORTED BACK TO PREVIOUS FACILITY.
== END 2021-08-10 13:31 ==
LOC: ER 17:22
DX: R45.851 Suicidal ideations (principal); F32.A Depression, unspecified; K21.9 Gastro-esophageal reflux disease without esophagitis; I10 Essential (primary) hypertension; E11.9 Type 2 diabetes mellitus without complications; Z79.84 Long term (current) use of oral hypoglycemic drugs; F17.200 Nicotine dependence, unspecified, uncomplicated; Z20.822 Contact with and (suspected) exposure to COVID-19
CPT/HCPCS: 36415; 80048-TC; 80076-TC; 85025-TC; C9803; G0480

== ENCOUNTER 2022-01-10 04:59 | Inpatient (IN) | payer MEDICARE, OTHER ==
[~2022-01-10] VITALS: Ht 193 cm; Wt 113.4 kg
[~2022-01-10 04:59] MED LIST changes: -NICO-676 TD
--- NOTE | 2022-01-10 06:15 | NUR ---
BIBSELF C/O +SI NO PLAN, WANTS VOL PSYCH ADMIT. -HI . PT A/OX4. TOLERATING R/A WELL WITH NO SOB, RESP EVEN AND NON LABORED. CONNECTED PT TO POX AND MONITOR. PT IN GOWN, BELONGINGS COLLECTED AND IN LOCKER, WANDED BY SECURITY. SAFETY MEASURES IN PLACE.
--- NOTE | 2022-01-10 06:16 | NUR ---
URINE SPECIMEN COLLECTED AND SENT TO LAB.
--- NOTE | 2022-01-10 06:19 | NUR ---
COVID SWAB COLLECTED
[2022-01-10 06:42] LABS: BASOPHILS # (AUTO) 0.1 K/uL (0.0-0.2); BASOPHILS % (AUTO) 0.9 % (0.0-2.0); EOSINOPHILS % (AUTO) 0.7 % (0.0-6.0); HEMATOCRIT 48 % (39-51); HEMOGLOBIN 16.4 g/dL (13.5-17.5); LYMPHOCYTES # (AUTO) 1.2 K/uL (0.8-4.8); LYMPHOCYTES % (AUTO) 18.7 % (20.0-44.0); MEAN CORPUSCULAR HGB CONC 34 g/dl (31.0-36.0); MEAN CORPUSCULAR VOLUME 86 fL (80-96); MONOCYTES # (AUTO) 0.6 K/uL (0.1-1.30); NEUTROPHILS # (AUTO) 4.4 K/uL (1.8-8.9); NEUTROPHILS % (AUTO) 69.7 % (43.0-81.0); PLATELET COUNT (AUTO) 236 K/uL (150-450); RED BLOOD CELL COUNT(AUTO) 5.55 MIL/uL (4.5-6.0); WHITE BLOOD COUNT (AUTO) 6.3 K/uL (4.3-11.0)
[2022-01-10 06:48] LABS: BILIRUBIN,URINE NEGATIVE (NEGATIVE); COLOR,URINE YELLOW (YELLOW); LEUKOCYTE ESTERASE ,URINE NEGATIVE (NEGATIVE); NITRITE, URINE NEGATIVE (NEGATIVE); PROTEIN,URINE NEGATIVE (NEGATIVE); UGLUCOSE NEGATIVE (NEGATIVE); UROBILINOGEN,URINE 0.2 EU/dL (0.2)
[2022-01-10 07:02] LABS: ALANINE AMINOTRANSFERASE 69 U/L (12-78); ALBUMIN 4.1 g/dL (3.4-5.0); ALKALINE PHOSPHATASE 69 U/L (46-116); ASPARTATE AMINOTRANSFERASE 37 U/L (15-37); BILIRUBIN,DIRECT 0.2 mg/dL (0.0-0.2); BILIRUBIN,TOTAL 0.5 mg/dL (0.2-1.0); CALCIUM, SERUM 9.3 mg/dL (8.5-10.1); CARBON DIOXIDE 27 mmol/L (21-32); CHLORIDE 98 mmol/L (98-107); CREATININE 1.4 mg/dL (0.6-1.3); GLUCOSE 119 mg/dL (74-106); POTASSIUM 4.2 mmol/L (3.5-5.1); SODIUM SERUM 135 mmol/L (136-145); TOTAL PROTEIN, SERUM 8.7 g/dL (6.4-8.2); UREA NITROGEN, BLOOD 18 mg/dL (7-18)
[2022-01-10 07:08] LABS: ACETAMINOPHEN < 10 ug/ml (10-30); ALCOHOL, BLOOD < 3 mg/dL (0-0)
--- NOTE | 2022-01-10 08:54 | NUR ---
RACHEL faxed clinicals to [facility] [[address] [place] [id number] FAX:[phone]] for voluntary psychiatric treatment.
--- NOTE | 2022-01-10 09:58 | NUR ---
CALLED [facility]AAK INTAKE WILL GET BACK TO US AFTER 1200 PER EARNEST.
--- NOTE | 2022-01-10 10:24 | NUR ---
Patient requested admission to [facility] and SW was notified by Babs Bundy that pt. will be admitted to [facility].
--- NOTE | 2022-01-10 11:00 | NUR ---
PATIENT ADMITTED ON VOL STATUS FOR SUICIDAL IDEATION .
[2022-01-10] MEDS ORDERED: ALBU18HF2 IH (11:25)
--- NOTE | 2022-01-10 11:30 | NUR ---
TAPER/FINISHER NOTE: PT IS 71 YR OLD MALE ADMITTED BY SELF , HOMELESS NO FAMILY TO CONTACT, ABLE TO MAKE NEEDS KNOWN, A&O X 3, STATED HE SMOKES 10 CIGARETTES PER DAY WILL DRINK MANY DRINKS HE CAN AFFORD DURING HAPPY HOUR WHICH IS NOT VERY MANY HE HAS NO MONEY, AND HE HAS BEEN DEPRESSED AND HAVING SI THOUGHTS. HE DOES NOT HAVE A PLAN AT THIS TIME, BUT IS THINKING ABOUT ENDING IT ALL IN HIS OWN WORDS. PT SKIN IS INTACT, NO C/O PAIN, STATED HE WAS VERY TIRED AND HAD NOT SLEPT FOR 3 DAYS IN A ROW DUE TO A TRIP TO [place] ON A BUS (UNCERTAIN IF THAT IS THE TRUTH), WAS PUT IN ROBE, CLOTHES AND BELONGINGS TAKEN AND ACCOUNTED FOR, WENT TO SLEEP AFTER ONE VOID YELLOW CLEAR NO FOUL ODOR NOTED. FELL INTO A DEEP SLEEP AND DID NOT WANT TO BE BOTHERED FOR ANYTHING AT THIS TIME.
--- NOTE | 2022-01-10 11:38 | NUR ---
report given to chico at g[facility]. awaiting transfer to floor.
[2022-01-10] MEDS ORDERED: TEMAZEPAM 7.5 MG CAPSULE PO PRN (13:00)
[2022-01-10] MEDS ORDERED: ACETAMINOPHEN 325 MG TABLET PO PRN ×4 (13:00→17:00)
[2022-01-10] MEDS ORDERED: MAGNESIUM HYDROXIDE 30 ML UDC PO PRN (13:00)
[2022-01-10] MEDS ORDERED: BLOOD SUGAR DIAGNOSTIC 1 EACH STRIP IN ONE (13:00)
[2022-01-10] MEDS ORDERED: MAG HYDROX/AL HYDROX/SIMETH 30 ML UDC PO PRN (13:00)
[2022-01-10] MEDS ORDERED: LORAZEPAM 0.5 MG TABLET PO PRN (13:00)
[2022-01-10 13:37] VITALS: BP 143/70
[2022-01-10 13:38] VITALS: BP 143/70
[2022-01-10] MEDS ORDERED: OLAN7.5T3 PO (13:47)
[2022-01-10] MEDS ORDERED: TYL2T PO (13:47)
[2022-01-10] MEDS ORDERED: METF-440 PO (13:47)
[2022-01-10] MEDS ORDERED: BISA10SU11 RC (13:47)
[2022-01-10] MEDS ORDERED: ACET-868 PO (13:47)
[2022-01-10] MEDS ORDERED: CHOL100043 PO (13:47)
[2022-01-10] MEDS ORDERED: NA P133E RC (13:47)
[2022-01-10] MEDS ORDERED: HYDR-4209 PO (13:47)
[2022-01-10] MEDS ORDERED: DIVA500T2 PO (13:47)
--- NOTE | 2022-01-10 14:15 | NUR ---
RACHEL Initial Discharge: [facility] [address] [place] [address]; . RACHEL spoke with Maxim Ornelas ([phone]) who stated that pt is welcomed back. Pt does not have any supportive contact at this time. RACHEL will coordinate with pt and MD for appropriate discharge.
--- NOTE | 2022-01-10 14:16 | NUR ---
RACHEL Clinical Note: Pt is a voluntary pt. Pt brought to the hospital because he had suicidal ideation. Pt was from [facility]. [facility] [address], [place] [address]; . RACHEL spoke with Maxim Ornelas ([phone]) who stated that pt is welcomed back. Pt does not have any supportive contact at this time.
--- NOTE | 2022-01-10 14:30 | NUR ---
Treatment Plan: Pt refused to sign treatment plan and was suspicious.
[2022-01-10] MEDS ORDERED: BISACODYL SUPP (10 MG) 10 MG/SUPP.RECT SUPP.RECT RC PRN (16:30)
--- NOTE | 2022-01-10 18:47 | NUR ---
RN NOTES PT SOUND ASLEEP, TRIED TO WAKE UP TO EAT DINNER BUT SNORING AND SOUND ASLEEP.
--- NOTE | 2022-01-10 18:47 | NUR ---
RN NOTES WENT INTO PUT WRIST BAND ON PT AND PERFORM A MRSA TEST HOWEVER PT IS SOUND A SLEEP SNORING, I WILL TRY AGAIN IN 15 MIN.
--- NOTE | 2022-01-10 18:58 | NUR ---
PT HAD REFUSED THE FULL BODY CHECK WELL STATED HE WAS VERY TIRED AND NEEDED SLEEP AND WOULD LET US LOOK OVER SKIN AND ALL AREAS LATER AFTER HE GETS SOME SLEEP.
--- NOTE | 2022-01-10 20:17 | NUR ---
RN NOTE PATIENT HAS AGREED TO ALLOW ME TO TRY A SKIN CHECK LATER ON. IT WILL BE SEEN IF HE AGREES TO AT A LATER TIME. HOWEVER, PATIENT WAS COOPERATIVE W/ ALLOWING THIS RN TO PUT HIS ID BAND ON, WELL GATHERING A MRSA SWAB. PATIENT APPEARS IN A COOPERATIVE ALBEIT ANXIOUS MOOD. WILL CONTINUE TO MONITOR PATIENT.
[2022-01-10 20:34] VITALS: BP 127/75
[2022-01-10] MEDS: METFORMIN 500 MG TABLET PO SCH ×2 (21:00→21:15)
[2022-01-11 08:00] VITALS: BP 116/56
[2022-01-11] MEDS: CHOLECALCIFEROL 1,000 UNIT TABLET (VIT D3) PO SCH (08:34)
[2022-01-11] MEDS: METFORMIN 500 MG TABLET PO SCH ×2 (08:34→21:16)
[2022-01-11] MEDS ORDERED: Medication Not On Formulary EA (Cholecalciferol (Vitamin D3) (Vitamin D3) 1,000 UNIT) PO SCH (09:00)
--- NOTE | 2022-01-11 10:06 | NUR ---
RN-CO: RECEIVE PT IN HIS ROOM, IRRITABLE, UNKEMPT AND DISHEVELED. HE IS DEPRESSED AND EASILY AGITATED. HE WAS SEEN AND EXAMINED BY DR CHANCE.
[2022-01-11] MEDS: OLANZAPINE 5 MG TABLET PO SCH ×2 (10:24→21:16)
[2022-01-11] MEDS: DIVALPROEX SODIUM 250 MG TABLET.DR PO SCH ×3 (10:25→16:47)
[2022-01-11 16:00] VITALS: BP 113/63
--- NOTE | 2022-01-11 23:15 | NUR ---
RN NOTES:PATIENT RESTING IN BED , NO S/SX OF ACUTE DISTRESS NOTED. PATIENT EASILY AGITATED ANXIOUS, NEEDY,DEMANDING, EASILY GETS IRRITABLE, DENIED SI/HI/AVH AT THIS TIME. SAFETY PRECAUTIONS IN PLACE. WILL CONTINUE TO MONITOR Q15MIN ROUNDS FOR SAFETY.
[2022-01-12 08:00] VITALS: BP 120/67
[2022-01-12] MEDS: DIVALPROEX SODIUM 250 MG TABLET.DR PO SCH ×3 (08:38→16:15)
[2022-01-12] MEDS: METFORMIN 500 MG TABLET PO SCH ×2 (08:38→21:07)
[2022-01-12] MEDS: OLANZAPINE 5 MG TABLET PO SCH ×2 (08:38→21:07)
[2022-01-12] MEDS: CHOLECALCIFEROL 1,000 UNIT TABLET (VIT D3) PO SCH (08:39)
[2022-01-12 15:50] VITALS: BP 115/57
--- NOTE | 2022-01-12 18:00 | NUR ---
RN NOTES PT RESTING IN BED, EASILY AGITATED ANXIOUS, EASILY GETS IRRITABLE, DENIED SI/HI/AVH AT THIS TIME. SAFETY PRECAUTIONS IN PLACE. VSS STABLE, WILL ENDORSE TO PATIENT REGISTRATION MANAGER NURSE FOR CONTINUITY OF CARE .
[2022-01-13 08:00] VITALS: BP 136/77
[2022-01-13] MEDS: CHOLECALCIFEROL 1,000 UNIT TABLET (VIT D3) PO SCH (08:47)
[2022-01-13] MEDS: OLANZAPINE 5 MG TABLET PO SCH ×2 (08:47→20:20)
[2022-01-13] MEDS: DIVALPROEX SODIUM 250 MG TABLET.DR PO SCH ×3 (08:47→16:03)
[2022-01-13] MEDS: METFORMIN 500 MG TABLET PO SCH ×2 (08:47→20:20)
[2022-01-13 08:55] LABS: CALCIUM, SERUM 8.9 mg/dL (8.5-10.1); CREATININE 1.2 mg/dL (0.6-1.3); POTASSIUM 4.6 mmol/L (3.5-5.1)
[2022-01-13 15:53] VITALS: BP 127/63
[2022-01-13 20:55] VITALS: BP 131/64
--- NOTE | 2022-01-14 07:21 | NUR ---
GPS RN NOTE RECEIVED PATIENT AWAKE AND IN BED, NO S/S OR COMPLAINTS OF PAIN AT THIS TIME. PATIENT IS DISPLAYING NO S/S OF APPARENT DISTRESS AT THIS TIME. PATIENT'S BREATHING IS UNLABORED WITH EQUAL RISE AND FALL OF THE CHEST. PATIENT IS ALERT AND ORIENTED X 1-2 ON ROOM AIR WITH A SPO2 OF 97%. PATIENT IS COMPLIANT WITH MEDICATION, DISORGANIZED, RESPONDING TO INTERNAL STIMULI, ANXIOUS AND COOPERATIVE. PATIENT DENIES SUICIDE IDEATIONS AND HOMICIDAL IDEATIONS AT THIS TIME. PATIENT ASSISTED WITH TURNING AND REPOSITIONING Q2 HR AND PRN FOR COMFORT AND CIRCULATION. PATIENT HAS NO NEEDS AT THIS TIME. PATIENT EDUCATED ON THE USE OF THE CALL BECKER. PATIENT BED SIDE RAILS UP X2 FOR SAFETY, BED IN LOCKED AND LOW. WILL CONTINUE TO MONITOR Q 15 MIS WITH THE HELP OF STAFF TO MAINTAIN SAFETY.
[2022-01-14 08:00] VITALS: BP 126/65
[2022-01-14] MEDS: OLANZAPINE 5 MG TABLET PO SCH ×2 (08:35→21:20)
[2022-01-14] MEDS: METFORMIN 500 MG TABLET PO SCH ×2 (08:35→21:20)
[2022-01-14] MEDS: CHOLECALCIFEROL 1,000 UNIT TABLET (VIT D3) PO SCH (08:35)
[2022-01-14] MEDS: DIVALPROEX SODIUM 250 MG TABLET.DR PO SCH ×3 (08:35→17:17)
[2022-01-14 16:00] VITALS: BP 131/68
--- NOTE | 2022-01-14 18:57 | NUR ---
GPS RN NOTE PATIENT AWAKE AND IN BED, NO S/S OR COMPLAINTS OF PAIN AT THIS TIME. PATIENT IS DISPLAYING NO S/S OF APPARENT DISTRESS AT THIS TIME. PATIENT'S BREATHING IS UNLABORED WITH EQUAL RISE AND FALL OF THE CHEST. PATIENT IS ALERT AND ORIENTED X 1-2 ON ROOM AIR WITH A SPO2 OF 95%. PATIENT IS COMPLIANT WITH MEDICATION, DISORGANIZED, RESPONDING TO INTERNAL STIMULI, ANXIOUS AND COOPERATIVE. PATIENT DENIES SUICIDE IDEATIONS AND HOMICIDAL IDEATIONS AT THIS TIME. PATIENT ASSISTED WITH TURNING AND REPOSITIONING Q2 HR AND PRN FOR COMFORT AND CIRCULATION. PATIENT HAS NO NEEDS AT THIS TIME. PATIENT EDUCATED ON THE USE OF THE CALL BECKER. PATIENT BED SIDE RAILS UP X2 FOR SAFETY, BED IN LOCKED AND LOW. WILL ENDORSE PATIENT FOR CONTINUITY OF CARE
--- NOTE | 2022-01-14 19:53 | NUR ---
GPS Nurses opening notes: RECEIVED PATIENT AWAKE AND IN BED, NO S/S OR COMPLAINTS OF PAIN AT THIS TIME. PATIENT IS DISPLAYING NO S/S OF APPARENT DISTRESS AT THIS TIME. PATIENT'S BREATHING IS UNLABORED WITH EQUAL RISE AND FALL OF THE CHEST. PATIENT IS ALERT AND ORIENTED X 1-2 ON ROOM AIR WITH A SPO2 OF 96%. PATIENT IS COMPLIANT WITH MEDICATION, DISORGANIZED, RESPONDING TO INTERNAL STIMULI, COOPERATIVE AND APPRECIATIVE. PATIENT DENIES SUICIDE IDEATIONS AND HOMICIDAL IDEATIONS AT THIS TIME. PATIENT ASSISTED WITH TURNING AND REPOSITIONING Q2 HR AND PRN FOR COMFORT AND CIRCULATION. PATIENT HAS NO NEEDS AT THIS TIME. PATIENT EDUCATED ON THE USE OF THE CALL BECKER. PATIENT BED SIDE RAILS UP X2 FOR SAFETY, BED IN LOCKED AND LOW. WILL CONTINUE TO MONITOR Q 15 MIS WITH THE HELP OF STAFF TO MAINTAIN SAFETY.
[2022-01-14 20:08] VITALS: BP 127/68
--- NOTE | 2022-01-15 05:28 | NUR ---
GPS Nurses Notes: Pt still in bed sleeping, no s/s of pain and discomfort, respiration is unlabored, no SOB noted, all needs attended.
[2022-01-15] MEDS: CHOLECALCIFEROL 1,000 UNIT TABLET (VIT D3) PO SCH (08:39)
[2022-01-15] MEDS: DIVALPROEX SODIUM 250 MG TABLET.DR PO SCH ×3 (08:39→17:44)
[2022-01-15] MEDS: METFORMIN 500 MG TABLET PO SCH ×2 (08:39→21:05)
[2022-01-15] MEDS: OLANZAPINE 5 MG TABLET PO SCH ×2 (08:39→21:05)
[2022-01-15 16:00] VITALS: BP 119/55
--- NOTE | 2022-01-15 20:00 | NUR ---
RN NOTE: PATIENT RESTING HIS ROOM . NO S/SX OF ACUTE DISTRESS NOTED. PATIENT EASILY AGITATED ANXIOUS, NEEDY,DEMANDING, EASILY GETS IRRITABLE, DENIED SI/HI/AVH AT THIS TIME. SAFETY PRECAUTIONS IN PLACE. WILL CONTINUE TO MONITOR Q15MIN ROUNDS FOR SAFETY.
[2022-01-16 08:00] VITALS: BP 113/72
[2022-01-16] MEDS: METFORMIN 500 MG TABLET PO SCH ×2 (09:20→20:23)
[2022-01-16] MEDS: OLANZAPINE 5 MG TABLET PO SCH ×2 (09:20→20:24)
[2022-01-16] MEDS: CHOLECALCIFEROL 1,000 UNIT TABLET (VIT D3) PO SCH (09:20)
[2022-01-16] MEDS: DIVALPROEX SODIUM 250 MG TABLET.DR PO SCH ×2 (09:20→16:47)
[2022-01-16 16:00] VITALS: BP 132/74
--- NOTE | 2022-01-16 20:07 | NUR ---
RN NOTES: PATIENT AWAKE, ALERT . NO S/SX OF ACUTE DISTRESS NOTED. PATIENT EASILY AGITATED ANXIOUS, NEEDY,DEMANDING, EASILY GETS IRRITABLE, DENIED SI/HI/AVH AT THIS TIME. SAFETY PRECAUTIONS IN PLACE. WILL CONTINUE TO MONITOR Q15MIN ROUNDS FOR SAFETY.
[2022-01-17 08:00] VITALS: BP 101/52
[2022-01-17] MEDS: OLANZAPINE 5 MG TABLET PO SCH ×2 (08:19→20:48)
[2022-01-17] MEDS: METFORMIN 500 MG TABLET PO SCH ×2 (08:20→20:48)
[2022-01-17] MEDS: CHOLECALCIFEROL 1,000 UNIT TABLET (VIT D3) PO SCH (08:20)
[2022-01-17] MEDS: DIVALPROEX SODIUM 250 MG TABLET.DR PO SCH ×2 (08:20→17:19)
[2022-01-17 16:00] VITALS: BP 108/64
--- NOTE | 2022-01-17 19:15 | NUR ---
GPS RN NOTES RECEIVED PATIENT IN BED AWAKE, A/OX3. NO S/SX OF ACUTE DISTRESS NOTED. PATIENT IS DISHEVELED AND UNKEMPT, REMAINS UNMOTIVATED, EASILY GETS IRRITABLE, COOPERATIVE TO CARE. DENIED SI/HI/AVH AT THIS TIME. VERBALIZATION OF FEELINGS ENCOURAGED. ENCOURAGED TO ATTEND IN GROUP ACTIVITIES. SAFETY PRECAUTIONS MAINTAINED. WILL CONTINUE TO MONITOR Q15MIN ROUNDS FOR SAFETY AND BEHAVIOR.
[2022-01-17 20:00] VITALS: BP 110/61
[2022-01-18] MEDS: OLANZAPINE 5 MG TABLET PO SCH ×2 (08:17→21:11)
[2022-01-18] MEDS: DIVALPROEX SODIUM 250 MG TABLET.DR PO SCH ×2 (08:17→16:17)
[2022-01-18] MEDS: METFORMIN 500 MG TABLET PO SCH ×2 (08:17→21:11)
[2022-01-18] MEDS: CHOLECALCIFEROL 1,000 UNIT TABLET (VIT D3) PO SCH (08:17)
--- NOTE | 2022-01-18 08:39 | NUR ---
SNF Contact: SW spoke with Maxim Ornelas ([phone]) and sent pt's clinicals H & P, progress notes, and medication list. He stated that pt is welcomed back and can be admitted on 01/20/2022.
--- NOTE | 2022-01-18 13:08 | NUR ---
RN-CO: PATIENT STATED THAT HE FEELS BETTER NOW AND HE THINKS THAT HE IS READY FOR DISCHARGE.
--- NOTE | 2022-01-18 19:15 | NUR ---
GPS RN NOTES RECEIVED PATIENT IN BED AWAKE, ALERT AND ORIENTED X3. NO S/SX OF ACUTE DISTRESS NOTED. PATIENT IS DISHEVELED AND UNKEMPT, REMAINS UNMOTIVATED, EASILY GETS IRRITABLE, COOPERATIVE TO CARE. DENIED SI/HI/AVH AT THIS TIME. VERBALIZATION OF FEELINGS ENCOURAGED. ENCOURAGED TO ATTEND IN GROUP ACTIVITIES. SAFETY PRECAUTIONS MAINTAINED. WILL CONTINUE TO MONITOR Q15MIN ROUNDS FOR SAFETY AND BEHAVIOR.
[2022-01-18 20:00] VITALS: BP 129/51
[2022-01-19 08:00] VITALS: BP 131/63
[2022-01-19] MEDS: CHOLECALCIFEROL 1,000 UNIT TABLET (VIT D3) PO SCH (08:16)
[2022-01-19] MEDS: DIVALPROEX SODIUM 250 MG TABLET.DR PO SCH ×2 (08:16→16:29)
[2022-01-19] MEDS: METFORMIN 500 MG TABLET PO SCH ×2 (08:17→21:16)
[2022-01-19] MEDS: OLANZAPINE 5 MG TABLET PO SCH ×2 (08:17→21:16)
--- NOTE | 2022-01-19 08:39 | NUR ---
RACHEL EARLY SATURDAY DISCHARGE ENTRY 01/20/2022: Patient will be discharged to [facility] to [facility] [address] [place] [address]; . Please arrange Ambulance transportation for patient to be picked up at 1PM. Manager Spanish spoke with BRAD, Senior Project Manager Engineering at [facility]; ([phone]), who stated patient will be accepted at facility today. Patient is alert and oriented x3. Patient denies any suicidal or homicidal ideations. Patient is aware and agreeable with discharge plans. Patient does not have any support at this time. Patient will follow-up at the facility with Dr. Alvarez (psychiatrist) [address] [address]; ([phone]) and Fence Erector Dr. Estrella at [address] [facility] [address], [place] [address]; ([phone]). Patient presents with euthymic mood and congruent mood. Patient refused to sign the homeless waiver upon discharge and a copy was placed in the chart. Homeless resources were provided and include [address] information line for shelters and homeless resources. A copy of all resources given to patient was also placed in the chart.
[2022-01-19 16:00] VITALS: BP 129/90
--- NOTE | 2022-01-19 19:30 | NUR ---
GPS RN NOTE, RECEIVED PATIENT AWAKE AND IN BED, NO S/S OR COMPLAINTS OF PAIN AT THIS TIME. PATIENT IS DISPLAYING NO S/S OF APPARENT DISTRESS AT THIS TIME. PATIENT BREATHING IS UNLABORED WITH EQUAL RISE AND FALL OF THE CHEST. PATIENT IS ALERT AND ORIENTED X 3 ON ROOM AIR WITH A SPO2 95%. PATIENT IS COMPLIANT WITH MEDICATIONS, DEPRESSED, MAKES NEEDS KNOWN, RESPONDING TO INTERNAL STIMULI, DISORGANIZED, AND IS COOPERATIVE. PATIENT DENIES SUICIDAL AND HOMICIDAL IDEATIONS AT THIS TIME. PATIENT ASSISTED WITH TURNING AND REPOSITIONING Q2HR AND PRN FOR COMFORT AND CIRCULATION. PATIENT HAS NO NEEDS AT THIS TIME. PATIENT EDUCATED ON THE USE OF THE CALL BECKER. PATIENT BED SIDE RAILS UP X 2 FOR SAFETY. PATIENT BED IS LOCKED, LOW, WITH BED ALARM ON. WILL CONTINUE TO MONITOR THIS PATIENT Q15 MINUTES WITH THE HELP OF STAFF TO MAINTAIN SAFETY.
[2022-01-19 20:19] VITALS: BP 118/64
[2022-01-20 08:00] VITALS: BP 122/59
[2022-01-20] MEDS: CHOLECALCIFEROL 1,000 UNIT TABLET (VIT D3) PO SCH (08:30)
[2022-01-20] MEDS: OLANZAPINE 5 MG TABLET PO SCH (08:30)
[2022-01-20] MEDS: METFORMIN 500 MG TABLET PO SCH (08:30)
[2022-01-20] MEDS: DIVALPROEX SODIUM 250 MG TABLET.DR PO SCH (08:31)
--- NOTE | 2022-01-20 09:03 | NUR ---
Dr. Alvarez gave an order to D/C pt. to [facility] and to follow up with psych and medical doctors. Called the facility at [phone] and spoke to Iesha the histology supervisor and siad they will take him today. Max Cuello medical CELLOPHANER made aware of the discharge and reconciled meds to continue in the facility. Pt. without distress, denies suicidal and homicidal. Discharge papers ready and belongings ready.
--- NOTE | 2022-01-20 09:49 | NUR ---
Pt. signed the discharged papers and report given to Iesha FITCH over the facility.
--- NOTE | 2022-01-20 11:15 | NUR ---
Pt. left the unit via ambulance and transported via a gurney with belongings. Left without distress and no agitation. V/S taken: BP 102/74, RR 18, PA 87, temp. 98.0, oxygen sat 94%.
== END 2022-01-20 11:15 | DRG 885 ==
LOC: ER 05:07 → GPS 11:50
PROVIDERS: ADMIT Psychiatry & Neurology Psychiatry; ATTEND Registered Nurse
DX: F31.64 Bipolar disorder, current episode mixed, severe, with psychotic features (principal); E87.1 Hypo-osmolality and hyponatremia; R45.851 Suicidal ideations; E11.9 Type 2 diabetes mellitus without complications; Z59.00 Homelessness unspecified; I10 Essential (primary) hypertension; F10.11 Alcohol abuse, in remission; M16.12 Unilateral primary osteoarthritis, left hip; Z68.30 Body mass index [BMI] 30.0-30.9, adult; E66.9 Obesity, unspecified; Z79.84 Long term (current) use of oral hypoglycemic drugs; Z79.899 Other long term (current) drug therapy; K21.9 Gastro-esophageal reflux disease without esophagitis; F17.210 Nicotine dependence, cigarettes, uncomplicated
CPT/HCPCS: 36415; 80048-TC; 80076-TC; 80164-TC; 85025-TC; 87081-TC; C9803; G0480

== ENCOUNTER 2022-09-25 11:41 | Inpatient (IN) | payer MEDICARE, OTHER ==
[~2022-09-25] VITALS: Ht 188 cm; Wt 126.1 kg
[~2022-09-25 11:41] MED LIST changes: +ACET-868 PO; +BISA10SU11 RC; +CHOL100043 PO; -DIVA500T2 PO; +HYDR-4209 PO; +NA P133E RC; -OLAN7.5T3 PO; +TYL2T PO
--- NOTE | 2022-09-25 12:00 | NUR ---
Patient AOx4, able to express his concerns. Discussed plan of care, pt verbalized agreement.
--- NOTE | 2022-09-25 12:02 | NUR ---
BLOOD DRAWN AND SENT TO LAB
[2022-09-25 12:16] LABS: BASOPHILS % (AUTO) 0.6 % (0.0-2.0); EOSINOPHILS % (AUTO) 3.4 % (0.0-6.0); HEMATOCRIT 48 % (39-51); HEMOGLOBIN 16.6 g/dL (13.5-17.5); LYMPHOCYTES # (AUTO) 1.8 K/uL (0.8-4.8); LYMPHOCYTES % (AUTO) 23.4 % (20.0-44.0); MEAN CORPUSCULAR HGB CONC 34 g/dl (31.0-36.0); MEAN CORPUSCULAR VOLUME 86 fL (80-96); MONOCYTES # (AUTO) 0.9 K/uL (0.1-1.30); MONOCYTES % (AUTO) 11.3 % (2.0-12.0); NEUTROPHILS # (AUTO) 4.6 K/uL (1.8-8.9); NEUTROPHILS % (AUTO) 61.3 % (43.0-81.0); PLATELET COUNT (AUTO) 262 K/uL (150-450); RED BLOOD CELL COUNT(AUTO) 5.57 MIL/uL (4.5-6.0); WHITE BLOOD COUNT (AUTO) 7.6 K/uL (4.3-11.0)
[2022-09-25 12:17] LABS: CALCIUM, SERUM 8.6 mg/dL (8.5-10.1); CARBON DIOXIDE 30 mmol/L (21-32); CHLORIDE 101 mmol/L (98-107); CREATININE 1.2 mg/dL (0.6-1.3); GLUCOSE 102 mg/dL (74-106); POTASSIUM 4.7 mmol/L (3.5-5.1); SODIUM SERUM 135 mmol/L (136-145); UREA NITROGEN, BLOOD 13 mg/dL (7-18)
[2022-09-25] MEDS ORDERED: Magnesium 1GM/D5W 100ML PREMIX 100 ML IV ONE (12:26)
[2022-09-25] MEDS ORDERED: ALBUTEROL FS 2.5 MG/3 ML VIAL.NEB ONE (12:28)
[2022-09-25] MEDS ORDERED: IPRATROPIUM NEB FS 0.5 MG/2.5 ML AMPUL.NEB ONE (12:28)
[2022-09-25] MEDS ORDERED: ALBUTEROL FS 2.5 MG/3 ML VIAL.NEB CONTNEB ONE (12:30)
[2022-09-25] MEDS ORDERED: Magnesium 1GM/D5W 100ML PREMIX 200 ML IV ONE (12:30)
[2022-09-25] MEDS ORDERED: methylPREDNISolone SOD SUCC 125 MG/2ML VIAL IV ONE (12:30)
[2022-09-25] MEDS ORDERED: IPRATROPIUM NEB FS 0.5 MG/2.5 ML AMPUL.NEB NEB ONE (12:30)
--- NOTE | 2022-09-25 12:30 | NUR ---
COVID swab collected, sent to lab
[2022-09-25 12:31] LABS: ALANINE AMINOTRANSFERASE 37 U/L (12-78); ALBUMIN 3.8 g/dL (3.4-5.0); ALKALINE PHOSPHATASE 59 U/L (46-116); ASPARTATE AMINOTRANSFERASE 24 U/L (15-37); BILIRUBIN,DIRECT 0.1 mg/dL (0.0-0.2); BILIRUBIN,TOTAL 0.3 mg/dL (0.2-1.0); TOTAL PROTEIN, SERUM 8.2 g/dL (6.4-8.2)
--- NOTE | 2022-09-25 12:37 | NUR ---
RT at bedside, providing breathing treatment as prescribed.
[2022-09-25] MEDS ORDERED: methylPREDNISolone SOD SUCC 125 MG/2ML VIAL ONE (12:43)
[2022-09-25] MEDS ORDERED: OLAN7.5T3 PO (13:37)
[2022-09-25] MEDS ORDERED: MAGN400O6 PO (13:37)
[2022-09-25] MEDS ORDERED: DIVA-78 PO (13:37)
--- NOTE | 2022-09-25 13:41 | NUR ---
ROOM 115-1
--- NOTE | 2022-09-25 13:49 | NUR ---
Called MIGUELITO RN, RN currently on lunch break.
[2022-09-25] MEDS ORDERED: ACETAMINOPHEN 325 MG TABLET PO PRN ×2 (14:00→17:00)
[2022-09-25] MEDS ORDERED: BISACODYL SUPP (10 MG) 10 MG/SUPP.RECT SUPP.RECT RC PRN (14:00)
--- NOTE | 2022-09-25 14:00 | NUR ---
Report given to garrett Gaines cleared to go to Room #115-1
[2022-09-25 14:35] VITALS: BP 128/80
--- NOTE | 2022-09-25 15:14 | NUR ---
television presenter note received patient from er with dx sob m under care catherine Rosales rn datacap developer ,patient alert oriented , on tele monitor sr hr 75, rt ac hl intact and flushed well , bed in lowest and locked position , on ra no sob noted at this time, safety measure provided , call light within reach , belonging checked by sasha limon cont to monitor hospital orientation done
[2022-09-25] MEDS: DIVALPROEX SODIUM 500 MG TABLET.DR PO SCH (15:19)
--- NOTE | 2022-09-25 15:57 | NUR ---
DIAMOND DRILLER NOTE CALLED TO CURTIS LAUREANO RNNP, NOTED BY PT IS WHEEZING UPON AUSCULTATION, PLACED ON 2L NASAL CANULA, PT SATURATION 93%, SUGGESTED TO ORDER BREATHING TX, STATED WILL CHECK IT OUT, WILL F/U
[2022-09-25] MEDS: METFORMIN 500 MG TABLET PO SCH (16:24)
[2022-09-25] MEDS ORDERED: ALBUTEROL HALF STRENGTH 1.25 MG/3 ML VIAL.NEB NEB PRN (17:00)
[2022-09-25] MEDS ORDERED: IPRATROPIUM NEB FS 0.5 MG/2.5 ML AMPUL.NEB NEB PRN (17:00)
[2022-09-25] MEDS ORDERED: ONDANSETRON HCL/PF 4 MG/2 ML VIAL IVP PRN (17:00)
--- NOTE | 2022-09-25 17:01 | NUR ---
MANAGER THERAPY NOTE RT AT BEDSIDE WILL DO PRN BREATHING TX
[2022-09-25] MEDS: ENOXAPARIN SODIUM 40 MG/0.4 ML DISP.SYRIN SQ SCH (17:12)
--- NOTE | 2022-09-25 18:30 | NUR ---
REBAR BENDER NOTE PATIENT IN BED, ALERT ORIENTED , ON TELE MONITOR SR HR 88 , ON 2L NC NO SOB NOTED AT THIS TIME, RT AC HL INTACT AND FLUSHED WELL , BED IN LOWEST AND LOCKED POSITION USING URINAL ABLE TO URONATE YELLOW COLOR URINE, BED IN LOWEST AND LOWEST, CALL LIGHT WITHIN REACH WILL CONT TO MONITOR
[2022-09-25 20:00] VITALS: BP 113/75
[2022-09-25] MEDS ORDERED: OLANZAPINE 5 MG TABLET PO ONE (21:00)
[2022-09-25] MEDS: methylPREDNISolone SOD SUCC 40 MG/ML VIAL IV SCH (21:09)
--- NOTE | 2022-09-25 21:55 | NUR ---
COMMERCIAL OR INSTITUTIONAL CLEANER OPENING NOTE PT RECEIVED IN BED, ASLEEP BUT EASILY AROUSABLE, A/0 X4, CALM, COOPERATIVE. PT ON 2L NC WITH CURRENT O2SAT OF 91%; NO S/S OF RESP DISTRESS, NO SOB OR COUGH, NON-LABORED AND EQUAL BREATHING. PT ATTACHED TO TELE MONITOR, SR WITH HR OF96. IV ACCESS ON RAC 20G INTACT AND PATENT, FLUSHES EASILY WITH NO RESISTANCE; NO FLUIDS/MEDS INFUSING THROUGH. BED IN LOWEST POSITION, CALL LIGHT WITHIN REACH, SIDE RAILS UP X2. WILL CONTINUE TO MONITOR THROUGHOUT THE NIGHT.
[2022-09-26] VITALS: BP 113/75
--- NOTE | 2022-09-26 03:27 | NUR ---
RN NOTE PT REFUSED TO HAVE 0000 VITAL SIGNS TAKEN
[2022-09-26 04:00] VITALS: BP 113/75
[2022-09-26] MEDS: methylPREDNISolone SOD SUCC 40 MG/ML VIAL IV SCH ×3 (05:19→20:27)
--- NOTE | 2022-09-26 05:49 | NUR ---
RN NOTE PT REFUSED 0400 VITAL SIGNS AFTER MULTIPLE ATTEMPTS.
--- NOTE | 2022-09-26 07:03 | NUR ---
RN NOTE PT REFUSED MORNING LABS. EDUCATED PT ON IMPORTANCE OF OBTAINING LABS; PT CONTINUED TO REFUSE.
--- NOTE | 2022-09-26 07:31 | NUR ---
FABRIC INSPECTOR OPENING NOTE PT RECEIVED IN BED, ASLEEP BUT EASILY AROUSABLE. A/0 X4. PT ON 2L NC WITH NO S/S OF RESP DISTRESS OR NO SOB. BREATHING EVEN AND UNLABORED. IV ACCESS ON RAC 20G INTACT AND PATENT, FLUSHES EASILY WITH NO RESISTANCE; NO FLUIDS/MEDS INFUSING THROUGH. BED IN LOWEST POSITION, CALL LIGHT WITHIN REACH, SIDE RAILS UP X2. WILL CONTINUE TO MONITOR.
--- NOTE | 2022-09-26 07:42 | NUR ---
BLADE WORKER CLOSING NOTE PT REMAINS IN BED, ASLEEP, IRRITABLE, NON-COOPERATIVE. CONTINUES TO BE ON 2L NC WITH O2SAT OF 91%; NO S/S OF RESP DISTRESS, NO SOB OR COUGH, NON-LABORED AND EQUAL BREATHING. ATTACHED TO TELE MONITOR, SR WITH HR OF 96. IV ACCESS ON RAC 20G INTACT AND PATENT, FLUSHES EASILY WITH NO RESISTANCE; NO MEDS/FLUIDS INFUSING THROUGH. ALL DUE MEDS ADMINISTERED DURING THE NIGHT. BED IN LOWEST POSITION, CALL LIGHT WITHIN REACH, SIDE RAILS UP X2. WILL ENDORSE TO DAYSHIFT NURSE TO CONTINUE CARE.
[2022-09-26 08:00] VITALS: BP 130/86
--- NOTE | 2022-09-26 09:21 | NUR ---
WOUND CARE CONSULT: PT PRESENTS WITH BLANCHABLE REDNESS TO BUTTOCKS, PRESENT ON ADMISSION. DISCUSSED SKIN PROTECTION WITH NURSING STAFF. MD IN AGREEMENT WITH PLAN OF CARE.
[2022-09-26 09:22] LABS: BASOPHILS % (AUTO) 0.2 % (0.0-2.0); HEMATOCRIT 48 % (39-51); HEMOGLOBIN 15.9 g/dL (13.5-17.5); LYMPHOCYTES # (AUTO) 1.1 K/uL (0.8-4.8); LYMPHOCYTES % (AUTO) 5.9 % (20.0-44.0); MEAN CORPUSCULAR HGB CONC 33 g/dl (31.0-36.0); MEAN CORPUSCULAR VOLUME 88 fL (80-96); MONOCYTES # (AUTO) 0.8 K/uL (0.1-1.30); MONOCYTES % (AUTO) 4.3 % (2.0-12.0); NEUTROPHILS # (AUTO) 16.7 K/uL (1.8-8.9); NEUTROPHILS % (AUTO) 89.6 % (43.0-81.0); PLATELET COUNT (AUTO) 266 K/uL (150-450); RED BLOOD CELL COUNT(AUTO) 5.38 MIL/uL (4.5-6.0); WHITE BLOOD COUNT (AUTO) 18.6 K/uL (4.3-11.0)
[2022-09-26] MEDS ORDERED: Z GUARD REMEDY 4 OZ OINT TP PRN (09:30)
[2022-09-26 09:41] LABS: CALCIUM, SERUM 9.1 mg/dL (8.5-10.1); CARBON DIOXIDE 24 mmol/L (21-32); CHLORIDE 102 mmol/L (98-107); CREATININE 1.1 mg/dL (0.6-1.3); GLUCOSE 179 mg/dL (74-106); MAGNESIUM 2.2 mg/dL (1.8-2.4); PHOSPHORUS 2.2 mg/dL (2.5-4.9); POTASSIUM 4.8 mmol/L (3.5-5.1); SODIUM SERUM 136 mmol/L (136-145); UREA NITROGEN, BLOOD 17 mg/dL (7-18)
[2022-09-26] MEDS: CHOLECALCIFEROL (VITAMIN D 3) 400 UNIT TABLET PO SCH (10:05)
[2022-09-26] MEDS: DIVALPROEX SODIUM 500 MG TABLET.DR PO SCH (10:05)
[2022-09-26] MEDS: METFORMIN 500 MG TABLET PO SCH ×2 (10:05→16:36)
[2022-09-26] MEDS: Z GUARD REMEDY 4 OZ OINT TP SCH (10:08)
[2022-09-26 11:40] LABS: CHOLESTEROL 241 mg/dL (<200); HDL CHOLESTEROL 41 mg/dL (40-60); LDL 166 mg/dL (0-99); TRIGLYCERIDES 191 mg/dL (30-150)
[2022-09-26 12:00] VITALS: BP 98/45
[2022-09-26] MEDS ORDERED: NEUTRA PHOS 1 POWD.PACKET PO ONE (12:00)
[2022-09-26] MEDS: IPRATROPIUM NEB FS 0.5 MG/2.5 ML AMPUL.NEB NEB SCH ×3 (14:31→20:09)
[2022-09-26] MEDS: ALBUTEROL HALF STRENGTH 1.25 MG/3 ML VIAL.NEB NEB SCH ×3 (14:31→20:09)
[2022-09-26 16:00] VITALS: BP 122/72
[2022-09-26] MEDS: ENOXAPARIN SODIUM 40 MG/0.4 ML DISP.SYRIN SQ SCH (16:37)
[2022-09-26] MEDS: LEVOFLOXACIN (250MG) 250 MG TABLET PO SCH (16:44)
[2022-09-26 20:00] VITALS: BP 130/72
--- NOTE | 2022-09-26 20:00 | NUR ---
RN NOTE RECEIVED PT IN BED, ALERT, AWAKE, ORIENTEDX4. VERBALLY RESPONSIVE. DENIES PAIN OR DISCOMFORT AT THIS TIME. PT ON 3L O2 VIA NC, O2 SAT-94% AT THIS TIME, NOTED SOB WHEN TALKING, HOB ELEVATED. AFEBRILE. PIV ON RAC, PATENT AND FLUSHES WELL. CALL LIGHT WITHIN EASY REACH. WILL CONT POC.
--- NOTE | 2022-09-26 20:07 | NUR ---
CPO CLOSING NOTE PT IN BED WATCHING TV. ALERT AND ORIENTED X4. CALM AND COOPERATIVE. ON 3L NC WITH O2 SAT OF 94%. NO S/S OF RESP DISTRESS. SIGNS OF SOB WHEN SPEAKING. ATTACHED TO TELE MONITOR. IV ACCESS ON RAC 20G INTACT AND PATENT, FLUSHES EASILY WITH NO RESISTANCE; NO MEDS/FLUIDS INFUSING THROUGH. ALL DUE MEDS ADMINISTERED AND NEEDS ATTENDED TO. BED IN LOWEST POSITION, CALL LIGHT WITHIN REACH, SIDE RAILS UP X2. WILL ENDORSE TO ONCOMING SHIFT FOR ANDREA.
--- NOTE | 2022-09-26 20:11 | NUR ---
RT NOTE PT REFUSING TX AT THIS TIME. EXPLAINED RISKS AND BENEFITS. RN MADIE NOTIFIED. WILL CONTINUE TO MONITOR.
--- NOTE | 2022-09-26 20:15 | NUR ---
RN NOTE PT REFUSED BREATHING TX, OFFERED X3, RISKS AND CONSEQUENCES EXPLAINED. PT STILL REFUSED.
[2022-09-27] VITALS (7 sets, daily range): BP systolic 118–138; BP diastolic 61–81
--- NOTE | 2022-09-27 00:40 | NUR ---
RN NOTE PT NOTED WITH EPISODE OF HEARTBURN, SNACK STEWARD SHRUTHI NOTIFIED WITH ORDER FOR PEPCID 20MG PO BID TO GIVE FIRST DOSE NOW. NOTED AND CARRIED OUT.
[2022-09-27] MEDS: FAMOTIDINE (20 MG) 20 MG TABLET PO SCH ×3 (00:59→16:02)
[2022-09-27] MEDS: IPRATROPIUM NEB FS 0.5 MG/2.5 ML AMPUL.NEB NEB SCH ×4 (01:21→20:03)
[2022-09-27] MEDS: ALBUTEROL HALF STRENGTH 1.25 MG/3 ML VIAL.NEB NEB SCH ×4 (01:22→20:03)
[2022-09-27] MEDS: methylPREDNISolone SOD SUCC 40 MG/ML VIAL IV SCH ×3 (05:02→21:05)
--- NOTE | 2022-09-27 07:00 | NUR ---
RN NOTE PT REMAINS IN STABLE CONDITION. NO SIGNIFICANT CHANGES NOTED. ALL NEEDS ATTENDED. KEPT PT CLEAN, DRY AND COMFORTABLE. WILL ENDORSE TO AM SHIFT FRO ANDREA.
--- NOTE | 2022-09-27 07:36 | NUR ---
telemetry tech opening note received pt asleep, easily arousable. pt is alert and oriented x4. pt on tele monitor sinus rhytm 68 with PACs. pt on 3 l nasal cannula saturating above 92%. pt has rac 20 guage. iv patent, intact, and flushing well. all safety measures in place. call light within reach. bed locked at lowest position.side rails up x2.
[2022-09-27] MEDS: DIVALPROEX SODIUM 500 MG TABLET.DR PO SCH (08:31)
[2022-09-27] MEDS: CHOLECALCIFEROL (VITAMIN D 3) 400 UNIT TABLET PO SCH (08:31)
[2022-09-27] MEDS: METFORMIN 500 MG TABLET PO SCH ×2 (08:31→16:02)
[2022-09-27] MEDS: Z GUARD REMEDY 4 OZ OINT TP SCH (10:21)
[2022-09-27] MEDS: LEVOFLOXACIN (250MG) 250 MG TABLET PO SCH (10:23)
[2022-09-27] MEDS: ENOXAPARIN SODIUM 40 MG/0.4 ML DISP.SYRIN SQ SCH (16:03)
--- NOTE | 2022-09-27 19:13 | NUR ---
BLOOD BANK TECHNOLOGIST CLOSING NOTE PT ALERT AND ORIENTED X4. VERBALLY RESPONSIVE AND ABLE TO MAKE NEEDS KNOWN. PT ON TELE MONITOR CURRENTLY SINUS RHYTM 77 AT THIS TIME. NO COMPLAINTS OF PAIN OR DISCOMFORT NOTED AT THIS TIME. PT ON 3 L NASAL CANNULA SATURATING AT 92%. RAC 20 GUAGE, IV PATENT, INTACT AND FLUSHING WELL. ALL SAFETY MEASURES IN PLACE. CALL LIGHT WITHIN REACH.BED LOCKED AT LOWEST POSITION. SIDE RAILS UP X2.ENDORSED TO OIL WINTERIZER RN FOR CONTUITY OF CARE
--- NOTE | 2022-09-27 19:30 | NUR ---
RN NOTE REPORT RECEIVED FROM ELOY FITCH, PT IN BED, AAO X 3-4, SATURATION AT 94% ON 3L VIA NC, SR ON THE MONITOR, HR IS 69. IV LINE AT RAC 20G PATENT AND FLUSHING WELL. PATIENT IS CONTINENT AND ABLE TO USE URINAL. SAFETY MEASURES IN PLACE, BED IS LOCKED AND AT LOWEST POSITION, CALL LIGHT WITHIN REACH OF PATIENT. WILL CONT TO MONITOR AND REASSESS.
[2022-09-27] MEDS ORDERED: ATORVASTATIN 10 MG TABLET PO SCH (22:00)
[2022-09-28] VITALS: BP 122/66
[2022-09-28] MEDS: ALBUTEROL HALF STRENGTH 1.25 MG/3 ML VIAL.NEB NEB SCH ×2 (01:30→07:50)
[2022-09-28] MEDS: IPRATROPIUM NEB FS 0.5 MG/2.5 ML AMPUL.NEB NEB SCH ×2 (01:30→07:50)
--- NOTE | 2022-09-28 02:05 | NUR ---
RT NOTE PT REFUSED TX AT THIS TIME. NO SOB NOTED. RN NOTIFIED.
[2022-09-28 04:00] VITALS: BP 166/65
[2022-09-28] MEDS: methylPREDNISolone SOD SUCC 40 MG/ML VIAL IV SCH (05:17)
[2022-09-28] MEDS ORDERED: ALBU1.257 IH (07:19)
[2022-09-28] MEDS ORDERED: ATOR10TA PO (07:19)
[2022-09-28] MEDS ORDERED: LEVO250T59 PO (07:19)
[2022-09-28] MEDS ORDERED: METH4TAB17 PO (07:19)
[2022-09-28] MEDS ORDERED: ASPI-1169 PO (07:19)
--- NOTE | 2022-09-28 07:30 | NUR ---
ASSISTANT PRINTER FLOOR COVERING OPENING NOTE RECEIVED PT IN BED, ALERT, AWAKE, ORIENTEDX4. VERBALLY RESPONSIVE. DENIES PAIN OR DISCOMFORT AT THIS TIME. PT ON 3L O2 VIA NC, O2 SAT-94% AT THIS TIME. ON TELE EXTERNAL MONITOR ,NO SOB NOTED HOB ELEVATED. AFEBRILE. RAC 20G ON S/L, PATENT AND FLUSHES WELL. CALL LIGHT WITHIN EASY REACH. WILL CONT POC.
[2022-09-28 08:00] VITALS: BP 121/70
[2022-09-28] MEDS: CHOLECALCIFEROL (VITAMIN D 3) 400 UNIT TABLET PO SCH (08:39)
[2022-09-28] MEDS: METFORMIN 500 MG TABLET PO SCH (08:40)
[2022-09-28] MEDS: FAMOTIDINE (20 MG) 20 MG TABLET PO SCH (08:41)
[2022-09-28] MEDS: DIVALPROEX SODIUM 500 MG TABLET.DR PO SCH (08:41)
[2022-09-28] MEDS: Z GUARD REMEDY 4 OZ OINT TP SCH (09:13)
--- NOTE | 2022-09-28 09:54 | NUR ---
TRANSITION SOCIAL WORKER NOTES: PER MD D/C PATIENT BACK TO [facility]. REPORT GIVEN TO GAURANG REGARDING D/C INSTRUCTION. PER MD FOLLOW UP PRIMARY FOR PFT AND POLYSOMNOGRAM. NURSE VERBALIZE UNDERSTANDING OF THE DISCHARGE.
[2022-09-28] MEDS: LEVOFLOXACIN (250MG) 250 MG TABLET PO SCH (11:13)
--- NOTE | 2022-09-28 12:31 | NUR ---
AREA DIRECTOR OF HOME HEALTH SALES NOTE: PT PICKED UP BY [facility] ASSITED BY 2 EMT. AAOX3. NO SOB, NO DYSPNEA. DENIES PAIN OR DISCOMFORT. ALL BELONGINGS ACCOUNTED AND SIGNED. DISCHARGE PAPER SIGNED BY PT AT BEDSIDE. PHOTOS OF SKIN ISSUE TAKE AND PLACED ON CHART. IV ACCESS REMOVED WITH NO COMPLICATIONS. CATERER TIP INTACT.EXIT CARE FOLDER GIVEN TO EMT. PT LEFT IN STABLE CONDITION
== END 2022-09-28 12:46 | DRG 191 ==
LOC: ER 11:41 → MEDSG1 13:52 → TELE1 13:59
PROVIDERS: ADMIT Nurse Practitioner Acute Care; ATTEND Nurse Practitioner Acute Care
DX: J44.1 Chronic obstructive pulmonary disease with (acute) exacerbation (principal); D68.59 Other primary thrombophilia; N17.9 Acute kidney failure, unspecified; I11.0 Hypertensive heart disease with heart failure; K21.9 Gastro-esophageal reflux disease without esophagitis; I50.9 Heart failure, unspecified; E66.01 Morbid (severe) obesity due to excess calories; Z68.35 Body mass index [BMI] 35.0-35.9, adult; E11.9 Type 2 diabetes mellitus without complications; I25.10 Atherosclerotic heart disease of native coronary artery without angina pectoris; N40.0 Benign prostatic hyperplasia without lower urinary tract symptoms; F41.9 Anxiety disorder, unspecified; Z79.84 Long term (current) use of oral hypoglycemic drugs; Z79.899 Other long term (current) drug therapy; F17.200 Nicotine dependence, unspecified, uncomplicated; F32.A Depression, unspecified; F29 Unspecified psychosis not due to a substance or known physiological condition; M16.12 Unilateral primary osteoarthritis, left hip; F10.10 Alcohol abuse, uncomplicated; Y90.9 Presence of alcohol in blood, level not specified; Z83.6 Family history of other diseases of the respiratory system; R09.02 Hypoxemia; Z20.822 Contact with and (suspected) exposure to COVID-19; G47.33 Obstructive sleep apnea (adult) (pediatric); Z99.3 Dependence on wheelchair
CPT/HCPCS: 36415; 70220-TC; 71045-TC; 80048-TC; 80061-TC; 80076-TC; 82962-TC; 83735-TC; 83880; 84100-TC; 84484-TC; 85025-TC; 87081-TC; 94799-TC; A6403; C9803; G0378; J1650; J2920; J2930; J3475